=== PATIENT | male | born 1935 | race Caucasian/White ===

== ENCOUNTER 2023-05-05 13:22 | Inpatient (IN) | payer MEDICARE, MEDICAID ==
[~2023-05-05] VITALS: Ht 167.6 cm; Wt 78.0 kg
[2023-05-05 14:17] LABS: BASOPHILS % (AUTO) 0.4 % (0.0-2.0); EOSINOPHILS # (AUTO) 0.2 K/uL (0.0-0.7); EOSINOPHILS % (AUTO) 1.7 % (0.0-6.0); HEMATOCRIT 29 % (39-51); HEMOGLOBIN 9.2 g/dL (13.5-17.5); LYMPHOCYTES # (AUTO) 1.9 K/uL (0.8-4.8); LYMPHOCYTES % (AUTO) 14.6 % (20.0-44.0); MEAN CORPUSCULAR HEMOGLOBIN 30 PG (26.0-33.0); MEAN CORPUSCULAR HGB CONC 32 g/dl (31.0-36.0); MEAN CORPUSCULAR VOLUME 94 fL (80-96); MONOCYTES # (AUTO) 0.8 K/uL (0.1-1.30); MONOCYTES % (AUTO) 5.9 % (2.0-12.0); NEUTROPHILS # (AUTO) 10.2 K/uL (1.8-8.9); NEUTROPHILS % (AUTO) 77.4 % (43.0-81.0); PLATELET COUNT (AUTO) 319 K/uL (150-450); RED BLOOD CELL COUNT(AUTO) 3.08 MIL/uL (4.5-6.0); RED CELL DISTRIBUTION WIDTH 14.4 % (11.5-15.0); WHITE BLOOD COUNT (AUTO) 13.2 K/uL (4.3-11.0)
[2023-05-05 14:30] LABS: INR 1.02 (0.91-1.10); PARTIAL THROMBOPLASTIN TIME 27.9 SEC (24.3-34.3); PROTHROMBIN TIME 10.8 SECS (9.2-11.1)
[2023-05-05 14:45] LABS: CALCIUM, SERUM 9.9 mg/dL (8.5-10.1); CARBON DIOXIDE 19 mmol/L (21-32); CHLORIDE 108 mmol/L (98-107); CREATININE 2.4 mg/dL (0.6-1.3); GLUCOSE 171 mg/dL (74-106); POTASSIUM 4.3 mmol/L (3.5-5.1); SODIUM SERUM 137 mmol/L (136-145); UREA NITROGEN, BLOOD 64 mg/dL (7-18)
[2023-05-05 14:51] LABS: ALANINE AMINOTRANSFERASE 18 U/L (12-78); ALBUMIN 2.2 g/dL (3.4-5.0); ALKALINE PHOSPHATASE 92 U/L (46-116); ASPARTATE AMINOTRANSFERASE 22 U/L (15-37); BILIRUBIN,DIRECT 0.1 mg/dL (0.0-0.2); BILIRUBIN,TOTAL 0.2 mg/dL (0.2-1.0); TOTAL PROTEIN, SERUM 7.7 g/dL (6.4-8.2)
[2023-05-05] MEDS ORDERED: MEMA5TAB42 PO (15:10)
[2023-05-05] MEDS ORDERED: MELA3TAB41 PO (15:10)
[2023-05-05] MEDS ORDERED: FOLI0.8T3 PO (15:10)
[2023-05-05] MEDS ORDERED: DOCU100T2 PO (15:10)
[2023-05-05] MEDS ORDERED: MAGN400O6 PO (15:10)
[2023-05-05] MEDS ORDERED: CYAN-51 PO (15:10)
[2023-05-05] MEDS ORDERED: ACET-868 PO (15:10)
[2023-05-05] MEDS ORDERED: SENN-261 PO (15:10)
[2023-05-05] MEDS ORDERED: MULT-754 PO (15:10)
[2023-05-05] MEDS ORDERED: METF-440 PO (15:10)
[2023-05-05] MEDS ORDERED: LISI20TA30 PO (15:10)
[2023-05-05 15:11] LABS: LACTIC ACID 1.4 mmol/L (0.4-2.0)
[2023-05-05 15:39] LABS: APPEARANCE,URINE CLOUDY (CLEAR); BILIRUBIN,URINE NEGATIVE (NEGATIVE); BLOOD, URINE 3+ Ery/uL (NEGATIVE); COLOR,URINE YELLOW (YELLOW); KETONES,URINE NEGATIVE (NEGATIVE); LEUKOCYTE ESTERASE ,URINE 2+ (NEGATIVE); NITRITE, URINE NEGATIVE (NEGATIVE); PH,URINE 5.5 (5.0-8.0); PROTEIN,URINE 1+ mg/dl (NEGATIVE); UGLUCOSE NEGATIVE (NEGATIVE); UROBILINOGEN,URINE 0.2 EU/dL (0.2)
[2023-05-05] MEDS ORDERED: CEFTRIAXONE 1GM BAG (ER ONLY) 50 ML IV ONE (15:59)
[2023-05-05] MEDS ORDERED: CEFTRIAXONE 1 G in IV D5W 50 ML IV ONE (16:00)
[2023-05-05] MEDS ORDERED: IV NS 0.9% 1,000 ML IV ONE (16:00)
[2023-05-05 16:20] LABS: ADD URINE CULTURE YES; BACTERIA,URINE 1+ /HPF (None Seen); MUCUS,URINE Moderate /LPF (None Seen); WBC,URINE 21-50 /HPF (0-3)
[2023-05-05] MEDS ORDERED: Z GUARD REMEDY 4 OZ OINT TP PRN (19:00)
[2023-05-05] MEDS ORDERED: DEXTROSE 50%-WATER 50 ML DISP.SYRIN IV PRN (19:00)
[2023-05-05] MEDS ORDERED: ZOLPIDEM TARTRATE 5 MG TABLET PO PRN (19:00)
[2023-05-05] MEDS ORDERED: ONDANSETRON HCL/PF 4 MG/2 ML VIAL IVP PRN (19:00)
[2023-05-05 20:00] VITALS: BP 122/55; TEMP 98.1; O2SAT 100
[2023-05-05] MEDS: IV NS 0.9% 1,000 ML IV PRN (20:00)
[2023-05-05] MEDS: ENOXAPARIN SODIUM 30 MG/0.3 ML DISP.SYRIN SQ SCH (20:22)
[2023-05-05 20:58] VITALS: BP 122/55; TEMP 98.1; O2SAT 100
[2023-05-05] MEDS: BLOOD SUGAR DIAGNOSTIC 1 EACH STRIP IN SCH (21:41)
[2023-05-06] MEDS: BLOOD SUGAR DIAGNOSTIC 1 EACH STRIP IN SCH ×4 (06:32→21:39)
[2023-05-06] MEDS: IV NS 0.9% 1,000 ML IV PRN ×2 (06:44→20:14)
[2023-05-06 07:00] LABS: BASOPHILS # (AUTO) 0.1 K/uL (0.0-0.2); BASOPHILS % (AUTO) 0.5 % (0.0-2.0); EOSINOPHILS # (AUTO) 0.2 K/uL (0.0-0.7); EOSINOPHILS % (AUTO) 1.7 % (0.0-6.0); HEMATOCRIT 26 % (39-51); HEMOGLOBIN 8.2 g/dL (13.5-17.5); MEAN CORPUSCULAR HEMOGLOBIN 29 PG (26.0-33.0); MEAN CORPUSCULAR HGB CONC 32 g/dl (31.0-36.0); MEAN CORPUSCULAR VOLUME 93 fL (80-96); MONOCYTES % (AUTO) 8.2 % (2.0-12.0); NEUTROPHILS # (AUTO) 9.1 K/uL (1.8-8.9); NEUTROPHILS % (AUTO) 73.6 % (43.0-81.0); PLATELET COUNT (AUTO) 285 K/uL (150-450); RED BLOOD CELL COUNT(AUTO) 2.79 MIL/uL (4.5-6.0); RED CELL DISTRIBUTION WIDTH 14.2 % (11.5-15.0); WHITE BLOOD COUNT (AUTO) 12.3 K/uL (4.3-11.0)
[2023-05-06 07:03] LABS: CALCIUM, SERUM 9.3 mg/dL (8.5-10.1); CARBON DIOXIDE 20 mmol/L (21-32); CHLORIDE 114 mmol/L (98-107); CREATININE 1.9 mg/dL (0.6-1.3); GLUCOSE 93 mg/dL (74-106); MAGNESIUM 2.2 mg/dL (1.8-2.4); PHOSPHORUS 3.2 mg/dL (2.5-4.9); POTASSIUM 4.3 mmol/L (3.5-5.1); SODIUM SERUM 144 mmol/L (136-145); UREA NITROGEN, BLOOD 52 mg/dL (7-18)
[2023-05-06 07:19] LABS: CHOLESTEROL 106 mg/dL (<200); HDL CHOLESTEROL 30 mg/dL (40-60); LDL 64 mg/dL (0-99); THYROID STIMULATING HORMONE 0.769 uIU/mL (0.358-3.74); TRIGLYCERIDES 112 mg/dL (30-150)
[2023-05-06 08:05] VITALS: BP 104/56; TEMP 98.8; O2SAT 99
[2023-05-06] MEDS: LISINOPRIL (20MG) 20 MG TABLET PO SCH ×2 (09:00→09:33)
[2023-05-06] MEDS ORDERED: METFORMIN 500 MG TABLET PO SCH (09:00)
[2023-05-06] MEDS: MEMANTINE HCL 5 MG TABLET PO SCH (09:32)
[2023-05-06] MEDS: FOLIC ACID 1 MG TABLET PO SCH (09:32)
[2023-05-06] MEDS: DOCUSATE SODIUM 100 MG CAPSULE PO SCH (09:32)
[2023-05-06] MEDS: PANTOPRAZOLE 40 MG TABLET.DR PO SCH (09:32)
[2023-05-06] MEDS: CYANOCOBALAMIN 500 MCG TABLET PO SCH (09:33)
[2023-05-06] MEDS: SENNOSIDES 8.6 MG TABLET PO SCH (09:33)
[2023-05-06] MEDS: INSULIN REGULAR, HUMAN 100 UNIT/ML 3 ML VIAL SQ PRN (12:20)
[2023-05-06 16:13] VITALS: BP 146/66; TEMP 98; O2SAT 99
[2023-05-06] MEDS: CEFTRIAXONE 1 G in IV D5W 50 ML IV SCH (16:21)
[2023-05-06 20:00] VITALS: BP 122/41; TEMP 99.1; O2SAT 99
[2023-05-06] MEDS: ENOXAPARIN SODIUM 30 MG/0.3 ML DISP.SYRIN SQ SCH (20:13)
[2023-05-07 06:13] LABS: BASOPHILS # (AUTO) 0.1 K/uL (0.0-0.2); BASOPHILS % (AUTO) 0.6 % (0.0-2.0); EOSINOPHILS # (AUTO) 0.3 K/uL (0.0-0.7); EOSINOPHILS % (AUTO) 2.4 % (0.0-6.0); HEMATOCRIT 26 % (39-51); HEMOGLOBIN 8.3 g/dL (13.5-17.5); LYMPHOCYTES # (AUTO) 1.6 K/uL (0.8-4.8); LYMPHOCYTES % (AUTO) 14.5 % (20.0-44.0); MEAN CORPUSCULAR HEMOGLOBIN 30 PG (26.0-33.0); MEAN CORPUSCULAR HGB CONC 32 g/dl (31.0-36.0); MEAN CORPUSCULAR VOLUME 93 fL (80-96); MONOCYTES # (AUTO) 0.9 K/uL (0.1-1.30); MONOCYTES % (AUTO) 7.7 % (2.0-12.0); NEUTROPHILS # (AUTO) 8.5 K/uL (1.8-8.9); NEUTROPHILS % (AUTO) 74.8 % (43.0-81.0); PLATELET COUNT (AUTO) 266 K/uL (150-450); RED BLOOD CELL COUNT(AUTO) 2.81 MIL/uL (4.5-6.0); RED CELL DISTRIBUTION WIDTH 14.3 % (11.5-15.0); WHITE BLOOD COUNT (AUTO) 11.4 K/uL (4.3-11.0)
[2023-05-07 06:37] LABS: ALANINE AMINOTRANSFERASE 14 U/L (12-78); ALBUMIN 1.7 g/dL (3.4-5.0); ALKALINE PHOSPHATASE 69 U/L (46-116); ASPARTATE AMINOTRANSFERASE 18 U/L (15-37); BILIRUBIN,TOTAL 0.2 mg/dL (0.2-1.0); CALCIUM, SERUM 9.6 mg/dL (8.5-10.1); CARBON DIOXIDE 19 mmol/L (21-32); CHLORIDE 116 mmol/L (98-107); CREATININE 1.7 mg/dL (0.6-1.3); GLUCOSE 92 mg/dL (74-106); MAGNESIUM 1.7 mg/dL (1.8-2.4); PHOSPHORUS 2.7 mg/dL (2.5-4.9); SODIUM SERUM 143 mmol/L (136-145); TOTAL PROTEIN, SERUM 6.5 g/dL (6.4-8.2); UREA NITROGEN, BLOOD 38 mg/dL (7-18)
[2023-05-07 08:42] VITALS: BP 158/56; TEMP 98.4; O2SAT 97
[2023-05-07] MEDS: INSULIN REGULAR, HUMAN 100 UNIT/ML 3 ML VIAL SQ PRN ×3 (09:49→22:31)
[2023-05-07] MEDS: BLOOD SUGAR DIAGNOSTIC 1 EACH STRIP IN SCH ×4 (09:49→22:31)
[2023-05-07] MEDS: IV NS 0.9% 1,000 ML IV PRN ×2 (09:50→23:51)
[2023-05-07] MEDS: FOLIC ACID 1 MG TABLET PO SCH (10:01)
[2023-05-07] MEDS: DOCUSATE SODIUM 100 MG CAPSULE PO SCH (10:01)
[2023-05-07] MEDS: MEMANTINE HCL 5 MG TABLET PO SCH (10:02)
[2023-05-07] MEDS: LISINOPRIL (20MG) 20 MG TABLET PO SCH (10:02)
[2023-05-07] MEDS: CYANOCOBALAMIN 500 MCG TABLET PO SCH (10:02)
[2023-05-07] MEDS: SENNOSIDES 8.6 MG TABLET PO SCH (10:02)
[2023-05-07] MEDS: PANTOPRAZOLE 40 MG TABLET.DR PO SCH (10:09)
[2023-05-07] MEDS ORDERED: MAGNESIUM OXIDE 400 MG TABLET PO ONE (10:30)
[2023-05-07 14:06] LABS: EOSINOPHILS % (MANUAL) 1 % (0-4); LYMPHOCYTES % (MANUAL) 13 % (16-48); MONOCYTES % (MANUAL) 3 % (0-11.0); NEUTROPHILS % (MANUAL) 83 (42-76); PLATELET ESTIMATE ADEQUATE
[2023-05-07 14:07] LABS: ANISOCYTOSIS 1+
[2023-05-07 15:52] VITALS: BP 150/60; TEMP 97.3; O2SAT 97
[2023-05-07] MEDS: CEFTRIAXONE 1 G in IV D5W 50 ML IV SCH (16:38)
[2023-05-07 20:00] VITALS: BP_SYST 148; BP_SYST 149; BP_DIAS 50; BP_DIAS 62; TEMP 97.6; O2SAT 97
[2023-05-07] MEDS: ENOXAPARIN SODIUM 30 MG/0.3 ML DISP.SYRIN SQ SCH (21:27)
[2023-05-08 06:17] LABS: BASOPHILS # (AUTO) 0.1 K/uL (0.0-0.2); BASOPHILS % (AUTO) 0.4 % (0.0-2.0); EOSINOPHILS # (AUTO) 0.2 K/uL (0.0-0.7); EOSINOPHILS % (AUTO) 1.5 % (0.0-6.0); HEMATOCRIT 24 % (39-51); HEMOGLOBIN 7.9 g/dL (13.5-17.5); LYMPHOCYTES # (AUTO) 1.8 K/uL (0.8-4.8); LYMPHOCYTES % (AUTO) 12.4 % (20.0-44.0); MEAN CORPUSCULAR HEMOGLOBIN 30 PG (26.0-33.0); MEAN CORPUSCULAR HGB CONC 33 g/dl (31.0-36.0); MEAN CORPUSCULAR VOLUME 93 fL (80-96); MONOCYTES # (AUTO) 0.9 K/uL (0.1-1.30); MONOCYTES % (AUTO) 6.4 % (2.0-12.0); NEUTROPHILS # (AUTO) 11.6 K/uL (1.8-8.9); NEUTROPHILS % (AUTO) 79.3 % (43.0-81.0); PLATELET COUNT (AUTO) 275 K/uL (150-450); RED BLOOD CELL COUNT(AUTO) 2.61 MIL/uL (4.5-6.0); RED CELL DISTRIBUTION WIDTH 14.2 % (11.5-15.0); WHITE BLOOD COUNT (AUTO) 14.6 K/uL (4.3-11.0)
[2023-05-08 06:39] LABS: ALANINE AMINOTRANSFERASE 14 U/L (12-78); ALBUMIN 1.6 g/dL (3.4-5.0); ALKALINE PHOSPHATASE 65 U/L (46-116); ASPARTATE AMINOTRANSFERASE 17 U/L (15-37); BILIRUBIN,TOTAL 0.2 mg/dL (0.2-1.0); CALCIUM, SERUM 9.4 mg/dL (8.5-10.1); CARBON DIOXIDE 20 mmol/L (21-32); CHLORIDE 117 mmol/L (98-107); CREATININE 1.5 mg/dL (0.6-1.3); GLUCOSE 102 mg/dL (74-106); MAGNESIUM 1.6 mg/dL (1.8-2.4); PHOSPHORUS 2.2 mg/dL (2.5-4.9); SODIUM SERUM 145 mmol/L (136-145); TOTAL PROTEIN, SERUM 6.2 g/dL (6.4-8.2); UREA NITROGEN, BLOOD 28 mg/dL (7-18)
[2023-05-08] MEDS: INSULIN REGULAR, HUMAN 100 UNIT/ML 3 ML VIAL SQ PRN (07:47)
[2023-05-08] MEDS: BLOOD SUGAR DIAGNOSTIC 1 EACH STRIP IN SCH ×4 (07:47→22:16)
[2023-05-08 08:00] VITALS: BP 143/62; TEMP 99.9; O2SAT 100
[2023-05-08] MEDS: PANTOPRAZOLE 40 MG TABLET.DR PO SCH (08:13)
[2023-05-08] MEDS: SENNOSIDES 8.6 MG TABLET PO SCH (08:32)
[2023-05-08] MEDS: CYANOCOBALAMIN 500 MCG TABLET PO SCH (08:33)
[2023-05-08] MEDS: ACETAMINOPHEN 325 MG TABLET PO PRN (08:33)
[2023-05-08] MEDS: DOCUSATE SODIUM 100 MG CAPSULE PO SCH (08:34)
[2023-05-08] MEDS: FOLIC ACID 1 MG TABLET PO SCH (08:34)
[2023-05-08] MEDS: MEMANTINE HCL 5 MG TABLET PO SCH (08:35)
[2023-05-08] MEDS ORDERED: MAGNESIUM OXIDE 400 MG TABLET PO ONE (11:00)
[2023-05-08 16:00] VITALS: BP 144/66; TEMP 98.8; O2SAT 98
[2023-05-08] MEDS: CEFTRIAXONE 1 G in IV D5W 50 ML IV SCH (16:04)
[2023-05-08] MEDS: IV NS 0.9% 1,000 ML IV PRN (16:12)
[2023-05-08] MEDS ORDERED: NEUTRA PHOS 1 POWD.PACKET PO ONE (17:00)
[2023-05-08 20:00] VITALS: BP 140/55; TEMP 97.5; O2SAT 98
[2023-05-08] MEDS: ENOXAPARIN SODIUM 30 MG/0.3 ML DISP.SYRIN SQ SCH (20:44)
[2023-05-09] MEDS: BLOOD SUGAR DIAGNOSTIC 1 EACH STRIP IN SCH ×4 (05:13→21:56)
[2023-05-09 06:21] LABS: MAGNESIUM 1.8 mg/dL (1.8-2.4)
[2023-05-09 08:00] VITALS: BP 145/64; TEMP 98.9; O2SAT 96
[2023-05-09] MEDS: PANTOPRAZOLE 40 MG TABLET.DR PO SCH (08:25)
[2023-05-09] MEDS: SENNOSIDES 8.6 MG TABLET PO SCH (08:25)
[2023-05-09] MEDS: DOCUSATE SODIUM 100 MG CAPSULE PO SCH (08:25)
[2023-05-09] MEDS: CYANOCOBALAMIN 500 MCG TABLET PO SCH (08:25)
[2023-05-09] MEDS: FOLIC ACID 1 MG TABLET PO SCH (08:25)
[2023-05-09] MEDS: MEMANTINE HCL 5 MG TABLET PO SCH (08:26)
[2023-05-09 16:00] VITALS: BP 142/62; TEMP 98.9; O2SAT 98
[2023-05-09] MEDS: IV NS 0.9% 1,000 ML IV PRN (16:00)
[2023-05-09] MEDS: CEFTRIAXONE 1 G in IV D5W 50 ML IV SCH (16:11)
[2023-05-09 20:00] VITALS: BP 157/81; TEMP 98.6; O2SAT 100
[2023-05-09] MEDS: ENOXAPARIN SODIUM 30 MG/0.3 ML DISP.SYRIN SQ SCH (20:26)
[2023-05-09] MEDS: INSULIN REGULAR, HUMAN 100 UNIT/ML 3 ML VIAL SQ PRN (21:56)
[2023-05-10] MEDS: BLOOD SUGAR DIAGNOSTIC 1 EACH STRIP IN SCH ×4 (06:29→22:00)
[2023-05-10] MEDS: INSULIN REGULAR, HUMAN 100 UNIT/ML 3 ML VIAL SQ PRN (06:30)
[2023-05-10] MEDS: PANTOPRAZOLE 40 MG TABLET.DR PO SCH ×2 (07:30→07:35)
[2023-05-10] MEDS: IV NS 0.9% 1,000 ML IV PRN (07:40)
[2023-05-10 08:37] VITALS: BP 164/64; TEMP 97.7; O2SAT 99
[2023-05-10] MEDS: FOLIC ACID 1 MG TABLET PO SCH (09:00)
[2023-05-10] MEDS: SENNOSIDES 8.6 MG TABLET PO SCH (09:00)
[2023-05-10] MEDS: MEMANTINE HCL 5 MG TABLET PO SCH (09:00)
[2023-05-10] MEDS: CYANOCOBALAMIN 500 MCG TABLET PO SCH (09:00)
[2023-05-10] MEDS: DOCUSATE SODIUM 100 MG CAPSULE PO SCH (09:00)
[2023-05-10 16:02] VITALS: BP 153/52; TEMP 98.1; O2SAT 97
[2023-05-10] MEDS: CEFTRIAXONE 1 G in IV D5W 50 ML IV SCH (17:01)
[2023-05-10] MEDS: GLUCERNA SHAKE 237 ML CAN PO SCH (17:44)
[2023-05-10 20:00] VITALS: BP 145/58; TEMP 98; O2SAT 97
[2023-05-10] MEDS: ENOXAPARIN SODIUM 30 MG/0.3 ML DISP.SYRIN SQ SCH (21:00)
[2023-05-11] MEDS: IV NS 0.9% 1,000 ML IV PRN (05:07)
[2023-05-11] MEDS: BLOOD SUGAR DIAGNOSTIC 1 EACH STRIP IN SCH ×4 (06:35→22:06)
[2023-05-11 08:00] VITALS: BP 156/68; TEMP 100.4; O2SAT 94
[2023-05-11] MEDS: MEMANTINE HCL 5 MG TABLET PO SCH (08:31)
[2023-05-11] MEDS: DOCUSATE SODIUM 100 MG CAPSULE PO SCH (08:31)
[2023-05-11] MEDS: PANTOPRAZOLE 40 MG TABLET.DR PO SCH (08:31)
[2023-05-11] MEDS: CYANOCOBALAMIN 500 MCG TABLET PO SCH (08:31)
[2023-05-11] MEDS: FOLIC ACID 1 MG TABLET PO SCH (08:31)
[2023-05-11] MEDS: SENNOSIDES 8.6 MG TABLET PO SCH (08:31)
[2023-05-11] MEDS: GLUCERNA SHAKE 237 ML CAN PO SCH ×2 (08:32→16:34)
[2023-05-11] MEDS: ACETAMINOPHEN 325 MG TABLET PO PRN ×2 (09:36→17:44)
[2023-05-11 09:51] LABS: BASOPHILS % (AUTO) 0.2 % (0.0-2.0); EOSINOPHILS # (AUTO) 0.1 K/uL (0.0-0.7); EOSINOPHILS % (AUTO) 0.9 % (0.0-6.0); HEMATOCRIT 30 % (39-51); HEMOGLOBIN 9.1 g/dL (13.5-17.5); LYMPHOCYTES # (AUTO) 1.5 K/uL (0.8-4.8); LYMPHOCYTES % (AUTO) 12.2 % (20.0-44.0); MEAN CORPUSCULAR HEMOGLOBIN 30 PG (26.0-33.0); MEAN CORPUSCULAR HGB CONC 30 g/dl (31.0-36.0); MEAN CORPUSCULAR VOLUME 99 fL (80-96); MONOCYTES # (AUTO) 0.9 K/uL (0.1-1.30); MONOCYTES % (AUTO) 7.2 % (2.0-12.0); NEUTROPHILS # (AUTO) 10.1 K/uL (1.8-8.9); NEUTROPHILS % (AUTO) 79.5 % (43.0-81.0); PLATELET COUNT (AUTO) 246 K/uL (150-450); RED BLOOD CELL COUNT(AUTO) 3.05 MIL/uL (4.5-6.0); RED CELL DISTRIBUTION WIDTH 15.6 % (11.5-15.0); WHITE BLOOD COUNT (AUTO) 12.7 K/uL (4.3-11.0)
[2023-05-11 10:02] LABS: ALANINE AMINOTRANSFERASE 14 U/L (12-78); ALBUMIN 1.8 g/dL (3.4-5.0); ALKALINE PHOSPHATASE 79 U/L (46-116); ASPARTATE AMINOTRANSFERASE 20 U/L (15-37); BILIRUBIN,TOTAL 0.2 mg/dL (0.2-1.0); CALCIUM, SERUM 9.6 mg/dL (8.5-10.1); CARBON DIOXIDE 18 mmol/L (21-32); CHLORIDE 115 mmol/L (98-107); CREATININE 1.5 mg/dL (0.6-1.3); GLUCOSE 106 mg/dL (74-106); MAGNESIUM 1.9 mg/dL (1.8-2.4); PHOSPHORUS 2.5 mg/dL (2.5-4.9); POTASSIUM 4.4 mmol/L (3.5-5.1); SODIUM SERUM 142 mmol/L (136-145); TOTAL PROTEIN, SERUM 6.8 g/dL (6.4-8.2); UREA NITROGEN, BLOOD 18 mg/dL (7-18)
[2023-05-11] MEDS: INSULIN REGULAR, HUMAN 100 UNIT/ML 3 ML VIAL SQ PRN ×2 (13:00→22:18)
[2023-05-11 16:00] VITALS: BP 133/54; TEMP 100.4; O2SAT 98
[2023-05-11] MEDS: CEFTRIAXONE 1 G in IV D5W 50 ML IV SCH (16:34)
[2023-05-11 18:30] VITALS: TEMP 99.1
[2023-05-11 20:02] VITALS: BP 140/54; TEMP 99.9; O2SAT 100
[2023-05-11] MEDS: ENOXAPARIN SODIUM 30 MG/0.3 ML DISP.SYRIN SQ SCH (21:41)
[2023-05-12] MEDS: BLOOD SUGAR DIAGNOSTIC 1 EACH STRIP IN SCH ×4 (06:16→22:56)
[2023-05-12] MEDS: INSULIN REGULAR, HUMAN 100 UNIT/ML 3 ML VIAL SQ PRN ×4 (06:16→23:19)
[2023-05-12] MEDS: PANTOPRAZOLE 40 MG TABLET.DR PO SCH (07:37)
[2023-05-12 08:00] VITALS: BP 142/76; TEMP 98.2; O2SAT 97
[2023-05-12] MEDS: GLUCERNA SHAKE 237 ML CAN PO SCH ×2 (08:27→17:17)
[2023-05-12] MEDS: FOLIC ACID 1 MG TABLET PO SCH (08:27)
[2023-05-12] MEDS: DOCUSATE SODIUM 100 MG CAPSULE PO SCH (08:27)
[2023-05-12] MEDS: CYANOCOBALAMIN 500 MCG TABLET PO SCH (08:27)
[2023-05-12] MEDS: MEMANTINE HCL 5 MG TABLET PO SCH (08:28)
[2023-05-12] MEDS: SENNOSIDES 8.6 MG TABLET PO SCH (08:28)
[2023-05-12] MEDS ORDERED: MEGESTROL ACETATE SUSP 400 MG/10 ML UDC PO SCH (10:30)
[2023-05-12] MEDS: MEGESTROL ACETATE SUSP 400 MG/10 ML UDC PO SCH (10:46)
[2023-05-12] MEDS ORDERED: CEFEPIME 2 GM in IV D5W 100 ML IV ONE (14:00)
[2023-05-12 16:00] VITALS: BP 139/57; TEMP 97.8; O2SAT 97
[2023-05-12 17:48] LABS: IRON, SERUM 11 ug/dl (50-175); TOTAL IRON BINDING CAPACITY 75 ug/dl (250-450)
[2023-05-12 18:26] LABS: FERRITIN 568 ng/mL (8-388)
[2023-05-12 20:00] VITALS: BP 137/58; TEMP 98.6; O2SAT 96
[2023-05-12] MEDS: ENOXAPARIN SODIUM 30 MG/0.3 ML DISP.SYRIN SQ SCH (22:02)
[2023-05-13] MEDS: BLOOD SUGAR DIAGNOSTIC 1 EACH STRIP IN SCH ×4 (06:11→22:49)
[2023-05-13] MEDS: INSULIN REGULAR, HUMAN 100 UNIT/ML 3 ML VIAL SQ PRN ×4 (06:12→22:52)
[2023-05-13 06:16] LABS: BASOPHILS % (AUTO) 0.4 % (0.0-2.0); EOSINOPHILS # (AUTO) 0.1 K/uL (0.0-0.7); EOSINOPHILS % (AUTO) 1.3 % (0.0-6.0); HEMATOCRIT 24 % (39-51); LYMPHOCYTES # (AUTO) 1.2 K/uL (0.8-4.8); LYMPHOCYTES % (AUTO) 11.9 % (20.0-44.0); MEAN CORPUSCULAR HEMOGLOBIN 30 PG (26.0-33.0); MEAN CORPUSCULAR HGB CONC 33 g/dl (31.0-36.0); MEAN CORPUSCULAR VOLUME 92 fL (80-96); MONOCYTES # (AUTO) 0.7 K/uL (0.1-1.30); MONOCYTES % (AUTO) 6.7 % (2.0-12.0); NEUTROPHILS # (AUTO) 7.8 K/uL (1.8-8.9); NEUTROPHILS % (AUTO) 79.7 % (43.0-81.0); PLATELET COUNT (AUTO) 222 K/uL (150-450); RED BLOOD CELL COUNT(AUTO) 2.63 MIL/uL (4.5-6.0); RED CELL DISTRIBUTION WIDTH 14.4 % (11.5-15.0); WHITE BLOOD COUNT (AUTO) 9.8 K/uL (4.3-11.0)
[2023-05-13 06:44] LABS: CALCIUM, SERUM 9.8 mg/dL (8.5-10.1); CARBON DIOXIDE 19 mmol/L (21-32); CHLORIDE 116 mmol/L (98-107); CREATININE 1.6 mg/dL (0.6-1.3); GLUCOSE 86 mg/dL (74-106); MAGNESIUM 1.9 mg/dL (1.8-2.4); PHOSPHORUS 2.4 mg/dL (2.5-4.9); POTASSIUM 3.6 mmol/L (3.5-5.1); SODIUM SERUM 143 mmol/L (136-145); UREA NITROGEN, BLOOD 25 mg/dL (7-18)
[2023-05-13] MEDS: PANTOPRAZOLE 40 MG TABLET.DR PO SCH (07:12)
[2023-05-13 08:00] VITALS: BP 153/63; TEMP 97.4; O2SAT 98
[2023-05-13] MEDS: GLUCERNA SHAKE 237 ML CAN PO SCH ×2 (08:27→17:11)
[2023-05-13] MEDS: SENNOSIDES 8.6 MG TABLET PO SCH (08:50)
[2023-05-13] MEDS: CYANOCOBALAMIN 500 MCG TABLET PO SCH (08:50)
[2023-05-13] MEDS: FOLIC ACID 1 MG TABLET PO SCH (08:50)
[2023-05-13] MEDS: MEMANTINE HCL 5 MG TABLET PO SCH (08:50)
[2023-05-13] MEDS: DOCUSATE SODIUM 100 MG CAPSULE PO SCH (08:50)
[2023-05-13] MEDS: MEGESTROL ACETATE SUSP 400 MG/10 ML UDC PO SCH (08:51)
[2023-05-13 10:07] LABS: FOLIC ACID > 20.0 ng/mL (>3.0)
[2023-05-13 11:07] LABS: IMMUNOGLOBULIN A, SERUM 404 mg/dL (61-437); IMMUNOGLOBULIN G, SERUM 1849 mg/dL (603-1613)
[2023-05-13 13:07] LABS: *SPE A/G RATIO 0.5 (0.7-1.7); *SPE ALBUMIN 2.1 g/dL (2.9-4.4); *SPE ALPHA-1-GLOBULIN 0.4 g/dL (0.0-0.4); *SPE ALPHA-2-GLOBULIN 0.9 g/dL (0.4-1.0); *SPE GLOBULIN, TOTAL 4.1 g/dL (2.2-3.9); *SPE M-SPIKE Not Observed g/dL (Not Observed); *SPE PROTEIN TOTAL 6.2 g/dL (6.0-8.5); *SPEGAMMA GLOBULIN 1.8 g/dL (0.4-1.8)
[2023-05-13] MEDS ORDERED: CEFEPIME 1 GM in IV D5W 50 ML IV SCH (14:00)
[2023-05-13 14:07] LABS: FREE LAMBDA LT CHAIN SERUM 136.2 mg/L (5.7-26.3); KAPPA/LAMBDA RATIO SERUM 1.68 (0.26-1.65)
[2023-05-13 15:29] LABS: HIV-1 p24 ANTIGEN NON REACTIVE (NONREACTIVE); HIV-1/2 ANTIBODY NON REACTIVE (NONREACTIVE)
[2023-05-13 16:00] VITALS: BP 99/59; TEMP 97.4; O2SAT 99
[2023-05-13] MEDS ORDERED: NEUTRA PHOS 1 POWD.PACKET NG ONE (16:00)
[2023-05-13 17:06] LABS: IMMUNOGLOBULIN M, SERUM 85 mg/dL (15-143)
[2023-05-13 20:00] VITALS: BP 119/45; TEMP 98.2; O2SAT 97
[2023-05-13 20:04] VITALS: BP 119/45; TEMP 98.2; O2SAT 97
[2023-05-13] MEDS: ENOXAPARIN SODIUM 30 MG/0.3 ML DISP.SYRIN SQ SCH (22:16)
[2023-05-14] MEDS: BLOOD SUGAR DIAGNOSTIC 1 EACH STRIP IN SCH ×4 (06:43→22:54)
[2023-05-14] MEDS: INSULIN REGULAR, HUMAN 100 UNIT/ML 3 ML VIAL SQ PRN ×3 (06:44→23:02)
[2023-05-14] MEDS: PANTOPRAZOLE 40 MG TABLET.DR PO SCH (07:37)
[2023-05-14 08:29] VITALS: BP 158/58; TEMP 99.1; O2SAT 98
[2023-05-14 08:40] VITALS: BP 133/59; TEMP 98.9; O2SAT 98
[2023-05-14] MEDS: CYANOCOBALAMIN 500 MCG TABLET PO SCH (08:44)
[2023-05-14] MEDS: GLUCERNA SHAKE 237 ML CAN PO SCH ×2 (08:44→17:17)
[2023-05-14] MEDS: DOCUSATE SODIUM 100 MG CAPSULE PO SCH (08:44)
[2023-05-14] MEDS: SENNOSIDES 8.6 MG TABLET PO SCH (08:44)
[2023-05-14] MEDS: FOLIC ACID 1 MG TABLET PO SCH (08:44)
[2023-05-14] MEDS: MEMANTINE HCL 5 MG TABLET PO SCH (08:44)
[2023-05-14] MEDS: MEGESTROL ACETATE SUSP 400 MG/10 ML UDC PO SCH (08:44)
[2023-05-14] MEDS: CEFEPIME 2 GM in IV D5W 100 ML IV SCH (14:05)
[2023-05-14 16:00] VITALS: BP 122/58; TEMP 99.1; O2SAT 97
[2023-05-14 20:00] VITALS: BP 148/71; TEMP 98.4; O2SAT 97
[2023-05-14] MEDS: ENOXAPARIN SODIUM 30 MG/0.3 ML DISP.SYRIN SQ SCH (21:28)
[2023-05-15 05:49] LABS: BASOPHILS % (AUTO) 0.3 % (0.0-2.0); EOSINOPHILS # (AUTO) 0.2 K/uL (0.0-0.7); HEMATOCRIT 26 % (39-51); HEMOGLOBIN 8.3 g/dL (13.5-17.5); LYMPHOCYTES % (AUTO) 21.5 % (20.0-44.0); MEAN CORPUSCULAR HEMOGLOBIN 30 PG (26.0-33.0); MEAN CORPUSCULAR HGB CONC 33 g/dl (31.0-36.0); MEAN CORPUSCULAR VOLUME 91 fL (80-96); MONOCYTES # (AUTO) 0.7 K/uL (0.1-1.30); MONOCYTES % (AUTO) 7.5 % (2.0-12.0); NEUTROPHILS # (AUTO) 6.4 K/uL (1.8-8.9); NEUTROPHILS % (AUTO) 68.7 % (43.0-81.0); PLATELET COUNT (AUTO) 247 K/uL (150-450); RED BLOOD CELL COUNT(AUTO) 2.81 MIL/uL (4.5-6.0); RED CELL DISTRIBUTION WIDTH 14.6 % (11.5-15.0); WHITE BLOOD COUNT (AUTO) 9.3 K/uL (4.3-11.0)
[2023-05-15 06:04] LABS: CALCIUM, SERUM 9.7 mg/dL (8.5-10.1); CARBON DIOXIDE 22 mmol/L (21-32); CHLORIDE 114 mmol/L (98-107); CREATININE 1.7 mg/dL (0.6-1.3); GLUCOSE 84 mg/dL (74-106); POTASSIUM 3.9 mmol/L (3.5-5.1); SODIUM SERUM 144 mmol/L (136-145); UREA NITROGEN, BLOOD 29 mg/dL (7-18)
[2023-05-15] MEDS: BLOOD SUGAR DIAGNOSTIC 1 EACH STRIP IN SCH ×4 (06:49→21:55)
[2023-05-15] MEDS: INSULIN REGULAR, HUMAN 100 UNIT/ML 3 ML VIAL SQ PRN ×2 (06:50→21:56)
[2023-05-15 08:00] VITALS: BP 151/60; TEMP 98.6; O2SAT 99
[2023-05-15] MEDS: SENNOSIDES 8.6 MG TABLET PO SCH (09:26)
[2023-05-15] MEDS: DOCUSATE SODIUM 100 MG CAPSULE PO SCH (09:26)
[2023-05-15] MEDS: CYANOCOBALAMIN 500 MCG TABLET PO SCH (09:27)
[2023-05-15] MEDS: PANTOPRAZOLE 40 MG TABLET.DR PO SCH (09:27)
[2023-05-15] MEDS: MEGESTROL ACETATE SUSP 400 MG/10 ML UDC PO SCH (09:27)
[2023-05-15] MEDS: FOLIC ACID 1 MG TABLET PO SCH (09:27)
[2023-05-15] MEDS: MEMANTINE HCL 5 MG TABLET PO SCH (09:27)
[2023-05-15] MEDS: GLUCERNA SHAKE 237 ML CAN PO SCH ×2 (09:28→17:24)
[2023-05-15] MEDS: CEFEPIME 2 GM in IV D5W 100 ML IV SCH (15:52)
[2023-05-15 16:00] VITALS: BP 117/50; TEMP 100.4; O2SAT 97
[2023-05-15 20:00] VITALS: BP 151/56; TEMP 98.6; O2SAT 97
[2023-05-15] MEDS: ENOXAPARIN SODIUM 30 MG/0.3 ML DISP.SYRIN SQ SCH (20:32)
[2023-05-16 01:04] LABS: EOSINOPHILS % (MANUAL) 2 % (0-4); LYMPHOCYTES % (MANUAL) 20 % (16-48); MONOCYTES % (MANUAL) 6 % (0-11.0); NEUTROPHILS % (MANUAL) 72 (42-76)
[2023-05-16 01:05] LABS: PLATELET ESTIMATE ADEQUATE
[2023-05-16] MEDS: BLOOD SUGAR DIAGNOSTIC 1 EACH STRIP IN SCH ×4 (06:30→23:06)
[2023-05-16] MEDS: INSULIN REGULAR, HUMAN 100 UNIT/ML 3 ML VIAL SQ PRN ×4 (06:31→23:07)
[2023-05-16] MEDS: PANTOPRAZOLE 40 MG TABLET.DR PO SCH (07:28)
[2023-05-16] MEDS: GLUCERNA SHAKE 237 ML CAN PO SCH ×2 (08:07→16:59)
[2023-05-16] MEDS: MEMANTINE HCL 5 MG TABLET PO SCH (08:08)
[2023-05-16] MEDS: SENNOSIDES 8.6 MG TABLET PO SCH (08:08)
[2023-05-16] MEDS: CYANOCOBALAMIN 500 MCG TABLET PO SCH (08:08)
[2023-05-16] MEDS: FOLIC ACID 1 MG TABLET PO SCH (08:08)
[2023-05-16] MEDS: MEGESTROL ACETATE SUSP 400 MG/10 ML UDC PO SCH (08:08)
[2023-05-16] MEDS: DOCUSATE SODIUM 100 MG CAPSULE PO SCH (08:08)
[2023-05-16 08:27] LABS: BASOPHILS % (AUTO) 0.3 % (0.0-2.0); EOSINOPHILS # (AUTO) 0.2 K/uL (0.0-0.7); EOSINOPHILS % (AUTO) 1.7 % (0.0-6.0); HEMATOCRIT 27 % (39-51); HEMOGLOBIN 8.6 g/dL (13.5-17.5); LYMPHOCYTES # (AUTO) 2.1 K/uL (0.8-4.8); LYMPHOCYTES % (AUTO) 21.1 % (20.0-44.0); MEAN CORPUSCULAR HEMOGLOBIN 30 PG (26.0-33.0); MEAN CORPUSCULAR HGB CONC 32 g/dl (31.0-36.0); MEAN CORPUSCULAR VOLUME 93 fL (80-96); MONOCYTES # (AUTO) 0.7 K/uL (0.1-1.30); NEUTROPHILS % (AUTO) 69.9 % (43.0-81.0); PLATELET COUNT (AUTO) 240 K/uL (150-450); RED BLOOD CELL COUNT(AUTO) 2.92 MIL/uL (4.5-6.0); RED CELL DISTRIBUTION WIDTH 14.7 % (11.5-15.0)
[2023-05-16 08:44] LABS: CALCIUM, SERUM 9.8 mg/dL (8.5-10.1); CARBON DIOXIDE 21 mmol/L (21-32); CHLORIDE 114 mmol/L (98-107); CREATININE 1.5 mg/dL (0.6-1.3); GLUCOSE 80 mg/dL (74-106); POTASSIUM 3.8 mmol/L (3.5-5.1); SODIUM SERUM 144 mmol/L (136-145); UREA NITROGEN, BLOOD 26 mg/dL (7-18)
[2023-05-16 09:06] VITALS: BP_SYST 137; BP_SYST 169; BP_DIAS 61; BP_DIAS 70; TEMP 99.1; O2SAT 98
[2023-05-16] MEDS: CEFEPIME 2 GM in IV D5W 100 ML IV SCH (13:05)
[2023-05-16 16:15] VITALS: BP 147/75; TEMP 98.5; O2SAT 98
[2023-05-16 20:00] VITALS: BP 159/66; TEMP 98.2; O2SAT 96
[2023-05-16] MEDS: ENOXAPARIN SODIUM 30 MG/0.3 ML DISP.SYRIN SQ SCH (20:46)
[2023-05-17 05:51] LABS: BASOPHILS % (AUTO) 0.4 % (0.0-2.0); EOSINOPHILS # (AUTO) 0.2 K/uL (0.0-0.7); HEMATOCRIT 25 % (39-51); HEMOGLOBIN 8.2 g/dL (13.5-17.5); LYMPHOCYTES % (AUTO) 19.7 % (20.0-44.0); MEAN CORPUSCULAR HEMOGLOBIN 30 PG (26.0-33.0); MEAN CORPUSCULAR HGB CONC 33 g/dl (31.0-36.0); MEAN CORPUSCULAR VOLUME 92 fL (80-96); MONOCYTES # (AUTO) 0.7 K/uL (0.1-1.30); MONOCYTES % (AUTO) 6.5 % (2.0-12.0); NEUTROPHILS # (AUTO) 7.3 K/uL (1.8-8.9); NEUTROPHILS % (AUTO) 71.4 % (43.0-81.0); PLATELET COUNT (AUTO) 252 K/uL (150-450); RED BLOOD CELL COUNT(AUTO) 2.71 MIL/uL (4.5-6.0); RED CELL DISTRIBUTION WIDTH 14.7 % (11.5-15.0); WHITE BLOOD COUNT (AUTO) 10.3 K/uL (4.3-11.0)
[2023-05-17 06:04] LABS: INR 1.03 (0.91-1.10); PARTIAL THROMBOPLASTIN TIME 30.8 SEC (24.3-34.3); PROTHROMBIN TIME 10.9 SECS (9.2-11.1)
[2023-05-17 06:19] LABS: CALCIUM, SERUM 10.1 mg/dL (8.5-10.1); CARBON DIOXIDE 21 mmol/L (21-32); CHLORIDE 113 mmol/L (98-107); CREATININE 1.6 mg/dL (0.6-1.3); GLUCOSE 85 mg/dL (74-106); POTASSIUM 3.7 mmol/L (3.5-5.1); SODIUM SERUM 143 mmol/L (136-145); UREA NITROGEN, BLOOD 25 mg/dL (7-18)
[2023-05-17] MEDS: BLOOD SUGAR DIAGNOSTIC 1 EACH STRIP IN SCH ×4 (06:30→21:42)
[2023-05-17] MEDS: INSULIN REGULAR, HUMAN 100 UNIT/ML 3 ML VIAL SQ PRN ×4 (06:37→21:42)
[2023-05-17] MEDS: PANTOPRAZOLE 40 MG TABLET.DR PO SCH (07:30)
[2023-05-17 08:00] VITALS: BP 149/64; TEMP 98.8; O2SAT 97
[2023-05-17] MEDS: GLUCERNA SHAKE 237 ML CAN PO SCH ×2 (08:00→17:00)
[2023-05-17] MEDS: SENNOSIDES 8.6 MG TABLET PO SCH (08:38)
[2023-05-17] MEDS: MEMANTINE HCL 5 MG TABLET PO SCH (08:38)
[2023-05-17] MEDS: FOLIC ACID 1 MG TABLET PO SCH (08:38)
[2023-05-17] MEDS: DOCUSATE SODIUM 100 MG CAPSULE PO SCH (08:38)
[2023-05-17] MEDS: MEGESTROL ACETATE SUSP 400 MG/10 ML UDC PO SCH (08:38)
[2023-05-17] MEDS: CYANOCOBALAMIN 500 MCG TABLET PO SCH (08:39)
[2023-05-17] MEDS: CEFEPIME 2 GM in IV D5W 100 ML IV SCH (14:34)
[2023-05-17 16:00] VITALS: BP 165/69; TEMP 98.8; O2SAT 99
[2023-05-17 20:00] VITALS: BP_SYST 150; BP_SYST 151; BP_DIAS 62; TEMP 97.3; O2SAT 98
[2023-05-17] MEDS: ENOXAPARIN SODIUM 30 MG/0.3 ML DISP.SYRIN SQ SCH (20:13)
[2023-05-17] MEDS: IV D5/ 0.9% NACL 1,000 ML IV PRN (20:39)
[2023-05-18 06:30] LABS: BASOPHILS % (AUTO) 0.2 % (0.0-2.0); EOSINOPHILS # (AUTO) 0.2 K/uL (0.0-0.7); HEMATOCRIT 26 % (39-51); HEMOGLOBIN 8.4 g/dL (13.5-17.5); LYMPHOCYTES # (AUTO) 1.6 K/uL (0.8-4.8); LYMPHOCYTES % (AUTO) 17.6 % (20.0-44.0); MEAN CORPUSCULAR HEMOGLOBIN 30 PG (26.0-33.0); MEAN CORPUSCULAR HGB CONC 32 g/dl (31.0-36.0); MEAN CORPUSCULAR VOLUME 92 fL (80-96); MONOCYTES # (AUTO) 0.7 K/uL (0.1-1.30); MONOCYTES % (AUTO) 7.4 % (2.0-12.0); NEUTROPHILS # (AUTO) 6.8 K/uL (1.8-8.9); NEUTROPHILS % (AUTO) 72.8 % (43.0-81.0); PLATELET COUNT (AUTO) 257 K/uL (150-450); RED BLOOD CELL COUNT(AUTO) 2.82 MIL/uL (4.5-6.0); RED CELL DISTRIBUTION WIDTH 14.7 % (11.5-15.0); WHITE BLOOD COUNT (AUTO) 9.3 K/uL (4.3-11.0)
[2023-05-18 06:46] LABS: CALCIUM, SERUM 10.1 mg/dL (8.5-10.1); CARBON DIOXIDE 22 mmol/L (21-32); CHLORIDE 113 mmol/L (98-107); CREATININE 1.5 mg/dL (0.6-1.3); GLUCOSE 102 mg/dL (74-106); POTASSIUM 3.9 mmol/L (3.5-5.1); SODIUM SERUM 143 mmol/L (136-145); UREA NITROGEN, BLOOD 23 mg/dL (7-18)
[2023-05-18] MEDS: BLOOD SUGAR DIAGNOSTIC 1 EACH STRIP IN SCH ×4 (07:12→22:29)
[2023-05-18] MEDS: INSULIN REGULAR, HUMAN 100 UNIT/ML 3 ML VIAL SQ PRN ×4 (07:12→22:29)
[2023-05-18] MEDS: PANTOPRAZOLE 40 MG TABLET.DR PO SCH (07:30)
[2023-05-18 08:00] VITALS: BP 145/57; TEMP 98.2; O2SAT 96
[2023-05-18] MEDS: GLUCERNA SHAKE 237 ML CAN PO SCH ×2 (08:00→17:00)
[2023-05-18] MEDS: FOLIC ACID 1 MG TABLET PO SCH (09:00)
[2023-05-18] MEDS: MEGESTROL ACETATE SUSP 400 MG/10 ML UDC PO SCH (09:00)
[2023-05-18] MEDS: CYANOCOBALAMIN 500 MCG TABLET PO SCH (09:00)
[2023-05-18] MEDS: DOCUSATE SODIUM 100 MG CAPSULE PO SCH (09:00)
[2023-05-18] MEDS: SENNOSIDES 8.6 MG TABLET PO SCH (09:00)
[2023-05-18] MEDS: MEMANTINE HCL 5 MG TABLET PO SCH (09:02)
[2023-05-18] MEDS: CEFEPIME 2 GM in IV D5W 100 ML IV SCH (15:00)
[2023-05-18 16:00] VITALS: BP 174/60; TEMP 97.9; O2SAT 96
[2023-05-18 19:00] VITALS: BP 132/54; TEMP 98; O2SAT 98
[2023-05-18 20:00] VITALS: BP 132/54; TEMP 98; O2SAT 98
[2023-05-18] MEDS: ENOXAPARIN SODIUM 30 MG/0.3 ML DISP.SYRIN SQ SCH (21:00)
[2023-05-19] MEDS: IV D5/ 0.9% NACL 1,000 ML IV PRN (04:45)
[2023-05-19] MEDS: INSULIN REGULAR, HUMAN 100 UNIT/ML 3 ML VIAL SQ PRN (06:46)
[2023-05-19] MEDS: BLOOD SUGAR DIAGNOSTIC 1 EACH STRIP IN SCH ×4 (06:46→22:57)
[2023-05-19] MEDS: PANTOPRAZOLE 40 MG TABLET.DR PO SCH (07:30)
[2023-05-19] MEDS: GLUCERNA SHAKE 237 ML CAN PO SCH ×2 (08:00→17:42)
[2023-05-19 08:13] VITALS: BP 172/61; TEMP 98.1; O2SAT 99
[2023-05-19] MEDS: MEMANTINE HCL 5 MG TABLET PO SCH (09:00)
[2023-05-19] MEDS: SENNOSIDES 8.6 MG TABLET PO SCH (09:00)
[2023-05-19] MEDS: DOCUSATE SODIUM 100 MG CAPSULE PO SCH (09:00)
[2023-05-19] MEDS: MEGESTROL ACETATE SUSP 400 MG/10 ML UDC PO SCH (09:00)
[2023-05-19] MEDS: CYANOCOBALAMIN 500 MCG TABLET PO SCH (09:00)
[2023-05-19] MEDS: FOLIC ACID 1 MG TABLET PO SCH (09:00)
[2023-05-19 10:52] LABS: CALCIUM, SERUM 10.2 mg/dL (8.5-10.1); CARBON DIOXIDE 19 mmol/L (21-32); CHLORIDE 112 mmol/L (98-107); CREATININE 1.4 mg/dL (0.6-1.3); GLUCOSE 91 mg/dL (74-106); POTASSIUM 3.4 mmol/L (3.5-5.1); SODIUM SERUM 142 mmol/L (136-145); UREA NITROGEN, BLOOD 18 mg/dL (7-18)
[2023-05-19 11:10] LABS: BASOPHILS % (AUTO) 0.5 % (0.0-2.0); EOSINOPHILS # (AUTO) 0.2 K/uL (0.0-0.7); EOSINOPHILS % (AUTO) 1.8 % (0.0-6.0); HEMATOCRIT 27 % (39-51); HEMOGLOBIN 8.5 g/dL (13.5-17.5); LYMPHOCYTES # (AUTO) 1.3 K/uL (0.8-4.8); LYMPHOCYTES % (AUTO) 14.7 % (20.0-44.0); MEAN CORPUSCULAR HEMOGLOBIN 30 PG (26.0-33.0); MEAN CORPUSCULAR HGB CONC 32 g/dl (31.0-36.0); MEAN CORPUSCULAR VOLUME 94 fL (80-96); MONOCYTES # (AUTO) 0.7 K/uL (0.1-1.30); MONOCYTES % (AUTO) 8.1 % (2.0-12.0); NEUTROPHILS # (AUTO) 6.7 K/uL (1.8-8.9); NEUTROPHILS % (AUTO) 74.9 % (43.0-81.0); PLATELET COUNT (AUTO) 260 K/uL (150-450); RED BLOOD CELL COUNT(AUTO) 2.83 MIL/uL (4.5-6.0); RED CELL DISTRIBUTION WIDTH 14.9 % (11.5-15.0)
[2023-05-19] MEDS: CEFEPIME 2 GM in IV D5W 100 ML IV SCH (13:14)
[2023-05-19] MEDS: POTASSIUM CL. PREMIX PERIPHER. 50 ML IV SCH ×2 (13:47→15:19)
[2023-05-19 16:00] VITALS: BP 167/85; TEMP 97.9; O2SAT 98
[2023-05-19 20:00] VITALS: BP 160/67; TEMP 98.2; O2SAT 100
[2023-05-19] MEDS: ENOXAPARIN SODIUM 30 MG/0.3 ML DISP.SYRIN SQ SCH (21:00)
[2023-05-20] MEDS: IV D5/ 0.9% NACL 1,000 ML IV PRN (01:29)
[2023-05-20 05:54] LABS: BASOPHILS % (AUTO) 0.3 % (0.0-2.0); EOSINOPHILS # (AUTO) 0.2 K/uL (0.0-0.7); EOSINOPHILS % (AUTO) 1.7 % (0.0-6.0); HEMATOCRIT 27 % (39-51); HEMOGLOBIN 8.7 g/dL (13.5-17.5); LYMPHOCYTES # (AUTO) 1.7 K/uL (0.8-4.8); LYMPHOCYTES % (AUTO) 16.5 % (20.0-44.0); MEAN CORPUSCULAR HEMOGLOBIN 30 PG (26.0-33.0); MEAN CORPUSCULAR HGB CONC 32 g/dl (31.0-36.0); MEAN CORPUSCULAR VOLUME 92 fL (80-96); MONOCYTES # (AUTO) 0.8 K/uL (0.1-1.30); MONOCYTES % (AUTO) 7.7 % (2.0-12.0); NEUTROPHILS # (AUTO) 7.6 K/uL (1.8-8.9); NEUTROPHILS % (AUTO) 73.8 % (43.0-81.0); PLATELET COUNT (AUTO) 292 K/uL (150-450); RED BLOOD CELL COUNT(AUTO) 2.92 MIL/uL (4.5-6.0); RED CELL DISTRIBUTION WIDTH 14.6 % (11.5-15.0); WHITE BLOOD COUNT (AUTO) 10.3 K/uL (4.3-11.0)
[2023-05-20 06:01] LABS: CALCIUM, SERUM 10.8 mg/dL (8.5-10.1); CREATININE 1.3 mg/dL (0.6-1.3); POTASSIUM 3.6 mmol/L (3.5-5.1)
[2023-05-20] MEDS: BLOOD SUGAR DIAGNOSTIC 1 EACH STRIP IN SCH ×3 (07:43→22:29)
[2023-05-20] MEDS: INSULIN REGULAR, HUMAN 100 UNIT/ML 3 ML VIAL SQ PRN ×2 (07:44→22:33)
[2023-05-20 08:00] VITALS: BP 152/62; TEMP 98.4; O2SAT 95
[2023-05-20] MEDS: PANTOPRAZOLE 40 MG TABLET.DR PO SCH (08:28)
[2023-05-20] MEDS: GLUCERNA SHAKE 237 ML CAN PO SCH (08:28)
[2023-05-20] MEDS: FOLIC ACID 1 MG TABLET PO SCH (09:29)
[2023-05-20] MEDS: SENNOSIDES 8.6 MG TABLET PO SCH (09:29)
[2023-05-20] MEDS: MEGESTROL ACETATE SUSP 400 MG/10 ML UDC PO SCH (09:29)
[2023-05-20] MEDS: CYANOCOBALAMIN 500 MCG TABLET PO SCH (09:30)
[2023-05-20] MEDS: MEMANTINE HCL 5 MG TABLET PO SCH (09:30)
[2023-05-20] MEDS: DOCUSATE SODIUM 100 MG CAPSULE PO SCH (09:30)
[2023-05-20] MEDS ORDERED: TRAM50TA2 PO (13:28)
[2023-05-20] MEDS ORDERED: ACET325T53 PO (13:28)
[2023-05-20] MEDS ORDERED: MEGE400O5 PO (13:28)
[2023-05-20] MEDS ORDERED: CEFE2FRO IV (13:28)
[2023-05-20] MEDS ORDERED: PANT40TA49 PO (13:28)
[2023-05-20] MEDS ORDERED: NUT.237L45 PO (13:28)
[2023-05-20] MEDS: CEFEPIME 2 GM in IV D5W 100 ML IV SCH (14:18)
[2023-05-20 20:00] VITALS: BP 155/78; TEMP 97; O2SAT 100
[2023-05-20] MEDS: ENOXAPARIN SODIUM 30 MG/0.3 ML DISP.SYRIN SQ SCH (21:52)
[2023-05-21] MEDS: PANTOPRAZOLE 40 MG TABLET.DR PO SCH (07:34)
[2023-05-21 08:00] VITALS: BP 154/67; TEMP 98.2; O2SAT 99
[2023-05-21] MEDS: BLOOD SUGAR DIAGNOSTIC 1 EACH STRIP IN SCH ×4 (08:04→21:06)
[2023-05-21] MEDS: INSULIN REGULAR, HUMAN 100 UNIT/ML 3 ML VIAL SQ PRN ×3 (08:05→16:53)
[2023-05-21] MEDS: GLUCERNA SHAKE 237 ML CAN PO SCH ×2 (08:13→16:51)
[2023-05-21] MEDS: DOCUSATE SODIUM 100 MG CAPSULE PO SCH (09:19)
[2023-05-21] MEDS: FOLIC ACID 1 MG TABLET PO SCH (09:19)
[2023-05-21] MEDS: MEGESTROL ACETATE SUSP 400 MG/10 ML UDC PO SCH ×2 (09:19→20:56)
[2023-05-21] MEDS: CYANOCOBALAMIN 500 MCG TABLET PO SCH (09:19)
[2023-05-21] MEDS: SENNOSIDES 8.6 MG TABLET PO SCH (09:19)
[2023-05-21] MEDS: MEMANTINE HCL 5 MG TABLET PO SCH (09:19)
[2023-05-21] MEDS: CEFEPIME 2 GM in IV D5W 100 ML IV SCH (13:02)
[2023-05-21 16:00] VITALS: BP 169/73; TEMP 98.4; O2SAT 100
[2023-05-21] MEDS: CLONIDINE HCL 0.1 MG TABLET PO PRN (17:22)
[2023-05-21 18:00] VITALS: BP 144/73; TEMP 98.1; O2SAT 98
[2023-05-21 20:00] VITALS: BP 145/59; TEMP 97.3; O2SAT 99
[2023-05-21] MEDS: ENOXAPARIN SODIUM 30 MG/0.3 ML DISP.SYRIN SQ SCH (20:54)
[2023-05-22 04:00] VITALS: BP 153/64; TEMP 97.4; O2SAT 98
[2023-05-22] MEDS: BLOOD SUGAR DIAGNOSTIC 1 EACH STRIP IN SCH ×4 (06:40→21:17)
[2023-05-22] MEDS: PANTOPRAZOLE 40 MG TABLET.DR PO SCH (07:48)
[2023-05-22] MEDS: GLUCERNA SHAKE 237 ML CAN PO SCH ×2 (08:00→17:00)
[2023-05-22 08:08] LABS: BASOPHILS % (AUTO) 0.2 % (0.0-2.0); EOSINOPHILS # (AUTO) 0.2 K/uL (0.0-0.7); EOSINOPHILS % (AUTO) 1.1 % (0.0-6.0); HEMATOCRIT 30 % (39-51); HEMOGLOBIN 9.5 g/dL (13.5-17.5); LYMPHOCYTES # (AUTO) 1.7 K/uL (0.8-4.8); MEAN CORPUSCULAR HEMOGLOBIN 29 PG (26.0-33.0); MEAN CORPUSCULAR HGB CONC 31 g/dl (31.0-36.0); MEAN CORPUSCULAR VOLUME 92 fL (80-96); MONOCYTES # (AUTO) 0.8 K/uL (0.1-1.30); NEUTROPHILS # (AUTO) 11.5 K/uL (1.8-8.9); NEUTROPHILS % (AUTO) 80.7 % (43.0-81.0); PLATELET COUNT (AUTO) 362 K/uL (150-450); RED BLOOD CELL COUNT(AUTO) 3.29 MIL/uL (4.5-6.0); RED CELL DISTRIBUTION WIDTH 14.8 % (11.5-15.0); WHITE BLOOD COUNT (AUTO) 14.2 K/uL (4.3-11.0)
[2023-05-22 08:47] LABS: C-REACTIVE PROTEIN 8.4 mg/dL (0.0-0.9)
[2023-05-22 09:13] LABS: CALCIUM, SERUM 11.1 mg/dL (8.5-10.1); CARBON DIOXIDE 19 mmol/L (21-32); CHLORIDE 110 mmol/L (98-107); CREATININE 1.4 mg/dL (0.6-1.3); GLUCOSE 102 mg/dL (74-106); POTASSIUM 3.6 mmol/L (3.5-5.1); SODIUM SERUM 139 mmol/L (136-145); UREA NITROGEN, BLOOD 20 mg/dL (7-18)
[2023-05-22] MEDS: SENNOSIDES 8.6 MG TABLET PO SCH (09:31)
[2023-05-22] MEDS: MEGESTROL ACETATE SUSP 400 MG/10 ML UDC PO SCH ×2 (09:31→21:17)
[2023-05-22] MEDS: DOCUSATE SODIUM 100 MG CAPSULE PO SCH (09:31)
[2023-05-22] MEDS: MEMANTINE HCL 5 MG TABLET PO SCH (09:31)
[2023-05-22] MEDS: CYANOCOBALAMIN 500 MCG TABLET PO SCH (09:32)
[2023-05-22] MEDS: FOLIC ACID 1 MG TABLET PO SCH (09:32)
[2023-05-22] MEDS: AMLODIPINE BESYLATE 2.5 MG TABLET PO SCH (09:34)
[2023-05-22] MEDS: IV D5/ 0.9% NACL 1,000 ML IV PRN (10:44)
[2023-05-22] MEDS: INSULIN REGULAR, HUMAN 100 UNIT/ML 3 ML VIAL SQ PRN ×2 (18:23→21:16)
[2023-05-22] MEDS: ENOXAPARIN SODIUM 30 MG/0.3 ML DISP.SYRIN SQ SCH (21:16)
[2023-05-23 07:17] LABS: BASOPHILS % (AUTO) 0.3 % (0.0-2.0); EOSINOPHILS # (AUTO) 0.1 K/uL (0.0-0.7); EOSINOPHILS % (AUTO) 1.1 % (0.0-6.0); HEMATOCRIT 31 % (39-51); HEMOGLOBIN 9.5 g/dL (13.5-17.5); LYMPHOCYTES # (AUTO) 1.2 K/uL (0.8-4.8); LYMPHOCYTES % (AUTO) 9.2 % (20.0-44.0); MEAN CORPUSCULAR HEMOGLOBIN 29 PG (26.0-33.0); MEAN CORPUSCULAR HGB CONC 31 g/dl (31.0-36.0); MEAN CORPUSCULAR VOLUME 93 fL (80-96); MONOCYTES # (AUTO) 0.7 K/uL (0.1-1.30); MONOCYTES % (AUTO) 5.2 % (2.0-12.0); NEUTROPHILS # (AUTO) 11.3 K/uL (1.8-8.9); NEUTROPHILS % (AUTO) 84.2 % (43.0-81.0); PLATELET COUNT (AUTO) 342 K/uL (150-450); RED BLOOD CELL COUNT(AUTO) 3.28 MIL/uL (4.5-6.0); RED CELL DISTRIBUTION WIDTH 15.4 % (11.5-15.0); WHITE BLOOD COUNT (AUTO) 13.4 K/uL (4.3-11.0)
[2023-05-23 07:33] LABS: CALCIUM, SERUM 11.2 mg/dL (8.5-10.1); CARBON DIOXIDE 19 mmol/L (21-32); CHLORIDE 112 mmol/L (98-107); CREATININE 1.4 mg/dL (0.6-1.3); GLUCOSE 142 mg/dL (74-106); POTASSIUM 3.6 mmol/L (3.5-5.1); SODIUM SERUM 142 mmol/L (136-145); UREA NITROGEN, BLOOD 18 mg/dL (7-18)
[2023-05-23] MEDS: BLOOD SUGAR DIAGNOSTIC 1 EACH STRIP IN SCH ×4 (08:53→22:15)
[2023-05-23] MEDS: IV D5/ 0.9% NACL 1,000 ML IV PRN ×2 (08:54→18:20)
[2023-05-23] MEDS: SENNOSIDES 8.6 MG TABLET PO SCH (08:55)
[2023-05-23] MEDS: MEMANTINE HCL 5 MG TABLET PO SCH (08:55)
[2023-05-23] MEDS: CYANOCOBALAMIN 500 MCG TABLET PO SCH (08:55)
[2023-05-23] MEDS: MEGESTROL ACETATE SUSP 400 MG/10 ML UDC PO SCH ×2 (08:55→22:09)
[2023-05-23] MEDS: PANTOPRAZOLE 40 MG TABLET.DR PO SCH (08:55)
[2023-05-23] MEDS: FOLIC ACID 1 MG TABLET PO SCH (08:55)
[2023-05-23] MEDS: DOCUSATE SODIUM 100 MG CAPSULE PO SCH (08:55)
[2023-05-23] MEDS: AMLODIPINE BESYLATE 2.5 MG TABLET PO SCH (08:56)
[2023-05-23] MEDS: GLUCERNA SHAKE 237 ML CAN PO SCH ×2 (09:00→16:21)
[2023-05-23] MEDS: INSULIN REGULAR, HUMAN 100 UNIT/ML 3 ML VIAL SQ PRN ×2 (09:02→22:16)
[2023-05-23 12:00] VITALS: BP 144/68; O2SAT 100
[2023-05-23] MEDS: ENOXAPARIN SODIUM 30 MG/0.3 ML DISP.SYRIN SQ SCH (21:59)
[2023-05-23] MEDS: CLONIDINE HCL 0.1 MG TABLET PO PRN (22:11)
[2023-05-23 22:36] VITALS: BP 160/58; TEMP 97; O2SAT 98
[2023-05-24] MEDS: PANTOPRAZOLE 40 MG TABLET.DR PO SCH ×2 (07:30→09:37)
[2023-05-24] MEDS: BLOOD SUGAR DIAGNOSTIC 1 EACH STRIP IN SCH ×4 (07:38→22:40)
[2023-05-24 08:00] VITALS: BP 133/77; TEMP 97.7; O2SAT 100
[2023-05-24 08:06] LABS: BASOPHILS % (AUTO) 0.1 % (0.0-2.0); EOSINOPHILS # (AUTO) 0.1 K/uL (0.0-0.7); EOSINOPHILS % (AUTO) 0.3 % (0.0-6.0); HEMATOCRIT 27 % (39-51); HEMOGLOBIN 8.6 g/dL (13.5-17.5); LYMPHOCYTES # (AUTO) 1.2 K/uL (0.8-4.8); LYMPHOCYTES % (AUTO) 7.6 % (20.0-44.0); MEAN CORPUSCULAR HEMOGLOBIN 29 PG (26.0-33.0); MEAN CORPUSCULAR HGB CONC 32 g/dl (31.0-36.0); MEAN CORPUSCULAR VOLUME 92 fL (80-96); MONOCYTES # (AUTO) 0.7 K/uL (0.1-1.30); MONOCYTES % (AUTO) 4.6 % (2.0-12.0); NEUTROPHILS # (AUTO) 13.2 K/uL (1.8-8.9); NEUTROPHILS % (AUTO) 87.4 % (43.0-81.0); PLATELET COUNT (AUTO) 312 K/uL (150-450); RED BLOOD CELL COUNT(AUTO) 2.95 MIL/uL (4.5-6.0); RED CELL DISTRIBUTION WIDTH 15.1 % (11.5-15.0); WHITE BLOOD COUNT (AUTO) 15.2 K/uL (4.3-11.0)
[2023-05-24] MEDS: GLUCERNA SHAKE 237 ML CAN PO SCH ×2 (08:08→17:22)
[2023-05-24 08:21] LABS: CALCIUM, SERUM 11.3 mg/dL (8.5-10.1); CREATININE 1.3 mg/dL (0.6-1.3); POTASSIUM 3.2 mmol/L (3.5-5.1)
[2023-05-24] MEDS: SENNOSIDES 8.6 MG TABLET PO SCH ×2 (09:00→09:35)
[2023-05-24] MEDS: DOCUSATE SODIUM 100 MG CAPSULE PO SCH ×2 (09:00→09:35)
[2023-05-24] MEDS: FOLIC ACID 1 MG TABLET PO SCH ×2 (09:00→09:36)
[2023-05-24] MEDS: CYANOCOBALAMIN 500 MCG TABLET PO SCH ×2 (09:00→09:35)
[2023-05-24] MEDS: MEMANTINE HCL 5 MG TABLET PO SCH ×2 (09:00→09:35)
[2023-05-24] MEDS: AMLODIPINE BESYLATE 2.5 MG TABLET PO SCH ×2 (09:00→09:38)
[2023-05-24] MEDS: IV D5/ 0.9% NACL 1,000 ML IV PRN (09:34)
[2023-05-24] MEDS: MEGESTROL ACETATE SUSP 400 MG/10 ML UDC PO SCH (09:35)
[2023-05-24] MEDS: POTASSIUM CL. PREMIX PERIPHER. 50 ML IV SCH ×2 (10:18→11:29)
[2023-05-24] MEDS ORDERED: POTASSIUM CHLORIDE 20 MEQ TAB.PRT.SR PO SCH (10:30)
[2023-05-24 16:00] VITALS: BP 110/55; TEMP 98.1; O2SAT 97
[2023-05-24] MEDS: MIRTAZAPINE 15 MG TABLET PO SCH (21:44)
[2023-05-24] MEDS: ENOXAPARIN SODIUM 30 MG/0.3 ML DISP.SYRIN SQ SCH (21:47)
[2023-05-24] MEDS: INSULIN REGULAR, HUMAN 100 UNIT/ML 3 ML VIAL SQ PRN (22:43)
[2023-05-25] VITALS: BP 123/66; TEMP 94.5; O2SAT 94
[2023-05-25] MEDS: IV D5/ 0.9% NACL 1,000 ML IV PRN (03:24)
[2023-05-25 07:22] LABS: BASOPHILS % (AUTO) 0.1 % (0.0-2.0); EOSINOPHILS % (AUTO) 0.2 % (0.0-6.0); HEMATOCRIT 27 % (39-51); HEMOGLOBIN 8.6 g/dL (13.5-17.5); LYMPHOCYTES # (AUTO) 0.7 K/uL (0.8-4.8); LYMPHOCYTES % (AUTO) 4.3 % (20.0-44.0); MEAN CORPUSCULAR HEMOGLOBIN 29 PG (26.0-33.0); MEAN CORPUSCULAR HGB CONC 32 g/dl (31.0-36.0); MEAN CORPUSCULAR VOLUME 92 fL (80-96); MONOCYTES # (AUTO) 0.7 K/uL (0.1-1.30); MONOCYTES % (AUTO) 4.1 % (2.0-12.0); NEUTROPHILS # (AUTO) 15.7 K/uL (1.8-8.9); NEUTROPHILS % (AUTO) 91.3 % (43.0-81.0); PLATELET COUNT (AUTO) 329 K/uL (150-450); RED BLOOD CELL COUNT(AUTO) 2.94 MIL/uL (4.5-6.0); RED CELL DISTRIBUTION WIDTH 15.1 % (11.5-15.0); WHITE BLOOD COUNT (AUTO) 17.2 K/uL (4.3-11.0)
[2023-05-25] MEDS: PANTOPRAZOLE 40 MG TABLET.DR PO SCH (07:30)
[2023-05-25 08:00] VITALS: BP 123/51; TEMP 97.6; O2SAT 91
[2023-05-25] MEDS: GLUCERNA SHAKE 237 ML CAN PO SCH ×2 (08:00→16:27)
[2023-05-25 08:05] LABS: ALANINE AMINOTRANSFERASE 14 U/L (12-78); ALKALINE PHOSPHATASE 66 U/L (46-116); ASPARTATE AMINOTRANSFERASE 17 U/L (15-37); BILIRUBIN,TOTAL 0.2 mg/dL (0.2-1.0); CALCIUM, SERUM 11.1 mg/dL (8.5-10.1); CARBON DIOXIDE 17 mmol/L (21-32); CHLORIDE 121 mmol/L (98-107); CREATININE 1.7 mg/dL (0.6-1.3); GLUCOSE 90 mg/dL (74-106); MAGNESIUM 1.8 mg/dL (1.8-2.4); POTASSIUM 3.6 mmol/L (3.5-5.1); SODIUM SERUM 148 mmol/L (136-145); TOTAL PROTEIN, SERUM 6.2 g/dL (6.4-8.2); UREA NITROGEN, BLOOD 20 mg/dL (7-18)
[2023-05-25] MEDS: BLOOD SUGAR DIAGNOSTIC 1 EACH STRIP IN SCH ×4 (08:06→21:12)
[2023-05-25 08:33] LABS: ALBUMIN 1.4 g/dL (3.4-5.0)
[2023-05-25] MEDS: AMLODIPINE BESYLATE 2.5 MG TABLET PO SCH (09:00)
[2023-05-25] MEDS: CYANOCOBALAMIN 500 MCG TABLET PO SCH (09:00)
[2023-05-25] MEDS: MEMANTINE HCL 5 MG TABLET PO SCH (09:00)
[2023-05-25] MEDS ORDERED: CEFEPIME 2 GM in IV D5W 100 ML IV SCH (09:00)
[2023-05-25] MEDS: DOCUSATE SODIUM 100 MG CAPSULE PO SCH (09:00)
[2023-05-25] MEDS: SENNOSIDES 8.6 MG TABLET PO SCH (09:00)
[2023-05-25] MEDS: FOLIC ACID 1 MG TABLET PO SCH (09:00)
[2023-05-25] MEDS ORDERED: POTASSIUM PHOSPHATE MM 15 MMOL in IV NS 0.9% 250 ML IV SCH (13:30)
[2023-05-25] MEDS ORDERED: IV 1/2NS 1000 ML 1,000 ML IV PRN (13:30)
[2023-05-25] MEDS: POTASSIUM PHOSPHATE MM 7.5 MMOL in IV NS 0.9% 100 ML IV SCH ×2 (14:54→18:06)
[2023-05-25 16:00] VITALS: BP 125/55; TEMP 97.9; O2SAT 95
[2023-05-25] MEDS ORDERED: IV NS 0.9% 500 ML IV PRN (17:30)
[2023-05-25] MEDS: MIRTAZAPINE 15 MG TABLET PO SCH (21:04)
[2023-05-25] MEDS: ENOXAPARIN SODIUM 30 MG/0.3 ML DISP.SYRIN SQ SCH (21:04)
[2023-05-26] VITALS: BP 138/65; TEMP 98.2; O2SAT 95
[2023-05-26 07:27] LABS: APPEARANCE,URINE CLEAR (CLEAR); BILIRUBIN,URINE NEGATIVE (NEGATIVE); BLOOD, URINE NEGATIVE Ery/uL (NEGATIVE); COLOR,URINE YELLOW (YELLOW); KETONES,URINE NEGATIVE (NEGATIVE); LEUKOCYTE ESTERASE ,URINE NEGATIVE (NEGATIVE); NITRITE, URINE NEGATIVE (NEGATIVE); PH,URINE 6.5 (5.0-8.0); PROTEIN,URINE NEGATIVE (NEGATIVE); UGLUCOSE NEGATIVE (NEGATIVE); UROBILINOGEN,URINE 0.2 EU/dL (0.2)
[2023-05-26] MEDS: PANTOPRAZOLE 40 MG TABLET.DR PO SCH (07:30)
[2023-05-26 07:36] LABS: CALCIUM, SERUM 10.1 mg/dL (8.5-10.1); CARBON DIOXIDE 16 mmol/L (21-32); CHLORIDE 120 mmol/L (98-107); CREATININE 2.7 mg/dL (0.6-1.3); GLUCOSE 69 mg/dL (74-106); POTASSIUM 4.2 mmol/L (3.5-5.1); SODIUM SERUM 148 mmol/L (136-145); UREA NITROGEN, BLOOD 26 mg/dL (7-18)
[2023-05-26 07:58] LABS: HEMATOCRIT 26 % (39-51); HEMOGLOBIN 8.3 g/dL (13.5-17.5); LYMPHOCYTES # (AUTO) 0.7 K/uL (0.8-4.8); LYMPHOCYTES % (AUTO) 3.4 % (20.0-44.0); MEAN CORPUSCULAR HEMOGLOBIN 29 PG (26.0-33.0); MEAN CORPUSCULAR HGB CONC 31 g/dl (31.0-36.0); MEAN CORPUSCULAR VOLUME 92 fL (80-96); MONOCYTES # (AUTO) 0.5 K/uL (0.1-1.30); MONOCYTES % (AUTO) 2.3 % (2.0-12.0); NEUTROPHILS # (AUTO) 18.3 K/uL (1.8-8.9); NEUTROPHILS % (AUTO) 94.3 % (43.0-81.0); PLATELET COUNT (AUTO) 242 K/uL (150-450); RED BLOOD CELL COUNT(AUTO) 2.86 MIL/uL (4.5-6.0); RED CELL DISTRIBUTION WIDTH 15.8 % (11.5-15.0); WHITE BLOOD COUNT (AUTO) 19.5 K/uL (4.3-11.0)
[2023-05-26 08:00] VITALS: BP 116/79; TEMP 97.2; O2SAT 97
[2023-05-26] MEDS: GLUCERNA SHAKE 237 ML CAN PO SCH ×2 (08:00→16:04)
[2023-05-26] MEDS: BLOOD SUGAR DIAGNOSTIC 1 EACH STRIP IN SCH ×4 (08:26→22:06)
[2023-05-26] MEDS: AMLODIPINE BESYLATE 2.5 MG TABLET PO SCH (08:36)
[2023-05-26] MEDS: MEMANTINE HCL 5 MG TABLET PO SCH (08:36)
[2023-05-26] MEDS: CYANOCOBALAMIN 500 MCG TABLET PO SCH (08:36)
[2023-05-26] MEDS: FOLIC ACID 1 MG TABLET PO SCH (08:36)
[2023-05-26] MEDS: DOCUSATE SODIUM 100 MG CAPSULE PO SCH (08:36)
[2023-05-26] MEDS: SENNOSIDES 8.6 MG TABLET PO SCH (08:36)
[2023-05-26] MEDS: IV D5/0.45 NACL 1,000 ML IV PRN ×2 (09:11→18:39)
[2023-05-26] MEDS: CEFEPIME 2 GM in IV D5W 100 ML IV SCH (15:52)
[2023-05-26 16:00] VITALS: BP 139/95; TEMP 96.4; O2SAT 99
[2023-05-26] MEDS: INSULIN REGULAR, HUMAN 100 UNIT/ML 3 ML VIAL SQ PRN ×2 (16:49→22:06)
[2023-05-26 20:31] VITALS: O2SAT 88
[2023-05-26 20:54] VITALS: BP 121/50; TEMP 100.2; O2SAT 95
[2023-05-26] MEDS: ENOXAPARIN SODIUM 30 MG/0.3 ML DISP.SYRIN SQ SCH (21:54)
[2023-05-26 22:00] VITALS: TEMP 99.7; O2SAT 95
[2023-05-26] MEDS: MIRTAZAPINE 15 MG TABLET PO SCH (22:00)
[2023-05-27] VITALS: BP 111/45; TEMP 99.3; O2SAT 98
[2023-05-27] MEDS: IV D5/0.45 NACL 1,000 ML IV PRN ×2 (04:43→15:28)
[2023-05-27 05:00] VITALS: BP 114/46; TEMP 97; O2SAT 88
[2023-05-27 05:30] VITALS: O2SAT 97
[2023-05-27 07:24] LABS: EOSINOPHILS # (AUTO) 0.1 K/uL (0.0-0.7); EOSINOPHILS % (AUTO) 0.4 % (0.0-6.0); HEMATOCRIT 25 % (39-51); HEMOGLOBIN 7.8 g/dL (13.5-17.5); LYMPHOCYTES # (AUTO) 0.9 K/uL (0.8-4.8); LYMPHOCYTES % (AUTO) 6.2 % (20.0-44.0); MEAN CORPUSCULAR HEMOGLOBIN 30 PG (26.0-33.0); MEAN CORPUSCULAR HGB CONC 32 g/dl (31.0-36.0); MEAN CORPUSCULAR VOLUME 93 fL (80-96); MONOCYTES # (AUTO) 0.3 K/uL (0.1-1.30); MONOCYTES % (AUTO) 2.3 % (2.0-12.0); NEUTROPHILS # (AUTO) 13.6 K/uL (1.8-8.9); NEUTROPHILS % (AUTO) 91.1 % (43.0-81.0); PLATELET COUNT (AUTO) 188 K/uL (150-450); RED BLOOD CELL COUNT(AUTO) 2.64 MIL/uL (4.5-6.0); RED CELL DISTRIBUTION WIDTH 16.4 % (11.5-15.0); WHITE BLOOD COUNT (AUTO) 14.9 K/uL (4.3-11.0)
[2023-05-27] MEDS: PANTOPRAZOLE 40 MG TABLET.DR PO SCH (07:30)
[2023-05-27 07:36] LABS: CALCIUM, SERUM 9.7 mg/dL (8.5-10.1); CARBON DIOXIDE 13 mmol/L (21-32); CHLORIDE 117 mmol/L (98-107); CREATININE 3.4 mg/dL (0.6-1.3); GLUCOSE 140 mg/dL (74-106); MAGNESIUM 1.7 mg/dL (1.8-2.4); POTASSIUM 3.7 mmol/L (3.5-5.1); SODIUM SERUM 144 mmol/L (136-145); UREA NITROGEN, BLOOD 37 mg/dL (7-18)
[2023-05-27 08:00] VITALS: BP 110/51; TEMP 96.4; O2SAT 100
[2023-05-27] MEDS: GLUCERNA SHAKE 237 ML CAN PO SCH (08:00)
[2023-05-27] MEDS: BLOOD SUGAR DIAGNOSTIC 1 EACH STRIP IN SCH ×4 (08:01→21:25)
[2023-05-27] MEDS: FOLIC ACID 1 MG TABLET PO SCH (08:01)
[2023-05-27] MEDS: DOCUSATE SODIUM 100 MG CAPSULE PO SCH (08:01)
[2023-05-27] MEDS: AMLODIPINE BESYLATE 2.5 MG TABLET PO SCH (08:02)
[2023-05-27] MEDS: CYANOCOBALAMIN 500 MCG TABLET PO SCH (08:02)
[2023-05-27] MEDS: SENNOSIDES 8.6 MG TABLET PO SCH (08:02)
[2023-05-27] MEDS: MEMANTINE HCL 5 MG TABLET PO SCH (08:02)
[2023-05-27] MEDS ORDERED: Magnesium 1GM/D5W 100ML PREMIX PIGGYBACK IV ONE ×2 (09:30)
[2023-05-27 09:37] LABS: BAND % (MANUAL) 23 % (0.0-5.0); LYMPHOCYTES % (MANUAL) 4 % (16-48); NEUTROPHILS % (MANUAL) 73 (42-76); PLATELET ESTIMATE ADEQUATE
[2023-05-27] MEDS ORDERED: GLUCERNA 1.2 1,000 ML BOTTLE NG PRN ×2 (12:00→12:30)
[2023-05-27] MEDS: INSULIN REGULAR, HUMAN 100 UNIT/ML 3 ML VIAL SQ PRN ×3 (12:22→21:25)
[2023-05-27] MEDS: CEFEPIME 2 GM in IV D5W 100 ML IV SCH (15:00)
[2023-05-27 16:00] VITALS: BP 110/45; TEMP 98.4; O2SAT 93
[2023-05-27 17:39] LABS: ABG BASE EXCESS -8.4 mmol/L; ABG OXYGEN SATURATION 92.6 % (92.0-98.5); ABG PCO2 21.5 mmHg (35.0-45.0); ABG PH 7.434 (7.350-7.450); ABG PO2 63.9 mmHg (75.0-100.0); ABG TOTAL HEMOGLOBIN 10.7 G/dL (13.5-18.0); AaDO2 124.7 mmHg; COHb 0.5 % (0.5-1.5); MetHb 0.3 % (0.0-1.5); O2Hb 91.9 % (94.0-97.0); SITE, ABG Right Radial; VENT MODE, BG N/C
[2023-05-27 20:00] VITALS: BP 138/54; TEMP 99.7; O2SAT 96
[2023-05-27] MEDS: ENOXAPARIN SODIUM 30 MG/0.3 ML DISP.SYRIN SQ SCH ×2 (21:00→21:27)
[2023-05-27] MEDS: MIRTAZAPINE 15 MG TABLET PO SCH (21:25)
[2023-05-28] VITALS (23 sets, daily range): BP systolic 110–161; BP diastolic 50–100; TEMP 97.7–98.1; O2SAT 89–100
[2023-05-28 07:37] LABS: EOSINOPHILS % (AUTO) 0.2 % (0.0-6.0); HEMATOCRIT 25 % (39-51); HEMOGLOBIN 7.5 g/dL (13.5-17.5); LYMPHOCYTES # (AUTO) 0.9 K/uL (0.8-4.8); LYMPHOCYTES % (AUTO) 4.7 % (20.0-44.0); MEAN CORPUSCULAR HEMOGLOBIN 29 PG (26.0-33.0); MEAN CORPUSCULAR HGB CONC 30 g/dl (31.0-36.0); MEAN CORPUSCULAR VOLUME 94 fL (80-96); MONOCYTES # (AUTO) 0.6 K/uL (0.1-1.30); MONOCYTES % (AUTO) 3.3 % (2.0-12.0); NEUTROPHILS # (AUTO) 17.1 K/uL (1.8-8.9); NEUTROPHILS % (AUTO) 91.8 % (43.0-81.0); PLATELET COUNT (AUTO) 167 K/uL (150-450); RED BLOOD CELL COUNT(AUTO) 2.65 MIL/uL (4.5-6.0); RED CELL DISTRIBUTION WIDTH 16.6 % (11.5-15.0); WHITE BLOOD COUNT (AUTO) 18.6 K/uL (4.3-11.0)
[2023-05-28] MEDS: BLOOD SUGAR DIAGNOSTIC 1 EACH STRIP IN SCH ×4 (07:51→22:10)
[2023-05-28 08:01] LABS: ALANINE AMINOTRANSFERASE 12 U/L (12-78); ALKALINE PHOSPHATASE 100 U/L (46-116); ASPARTATE AMINOTRANSFERASE 26 U/L (15-37); BILIRUBIN,DIRECT 0.2 mg/dL (0.0-0.2); BILIRUBIN,TOTAL 0.3 mg/dL (0.2-1.0); CALCIUM, SERUM 10.2 mg/dL (8.5-10.1); CARBON DIOXIDE 15 mmol/L (21-32); CHLORIDE 117 mmol/L (98-107); GLUCOSE 104 mg/dL (74-106); MAGNESIUM 2.2 mg/dL (1.8-2.4); PHOSPHORUS 3.5 mg/dL (2.5-4.9); POTASSIUM 4.2 mmol/L (3.5-5.1); SODIUM SERUM 143 mmol/L (136-145); TOTAL PROTEIN, SERUM 5.8 g/dL (6.4-8.2); UREA NITROGEN, BLOOD 48 mg/dL (7-18)
[2023-05-28 08:06] LABS: ALBUMIN 1.1 g/dL (3.4-5.0)
[2023-05-28] MEDS: MEMANTINE HCL 5 MG TABLET PO SCH (08:36)
[2023-05-28] MEDS: AMLODIPINE BESYLATE 2.5 MG TABLET PO SCH (08:37)
[2023-05-28] MEDS: CYANOCOBALAMIN 500 MCG TABLET PO SCH (08:37)
[2023-05-28] MEDS: DOCUSATE SODIUM 100 MG CAPSULE PO SCH (08:37)
[2023-05-28] MEDS: FOLIC ACID 1 MG TABLET PO SCH (08:37)
[2023-05-28] MEDS: SENNOSIDES 8.6 MG TABLET PO SCH (08:37)
[2023-05-28] MEDS: PANTOPRAZOLE 40 MG TABLET.DR PO SCH (08:40)
[2023-05-28] MEDS: MEROPENEM 500 MG in IV NS 0.9% 50 ML IV SCH ×2 (10:33→21:00)
[2023-05-28] MEDS ORDERED: Sodium Bicarbonate 100 MEQ in IV D5W 1,000 ML IV PRN (14:00)
[2023-05-28] MEDS ORDERED: FUROSEMIDE 100 MG/10 ML VIAL IV ONE (14:00)
[2023-05-28] MEDS ORDERED: PROPOFOL 100 ML IV PRN (17:30)
[2023-05-28] MEDS: PROPOFOL 100 ML IV PRN (17:54)
[2023-05-28] MEDS ORDERED: ETOMIDATE 2 MG/ML VIAL IV ONE (19:21)
[2023-05-28] MEDS ORDERED: ROCURONIUM BROMIDE 50 MG/5 ML IV ONE (19:21)
[2023-05-28] MEDS: ENOXAPARIN SODIUM 30 MG/0.3 ML DISP.SYRIN SQ SCH (21:00)
[2023-05-28] MEDS: MIRTAZAPINE 15 MG TABLET PO SCH (22:11)
[2023-05-28] MEDS: DOCUSATE SODIUM LIQ 100 MG/10 ML UDC GT SCH (22:11)
[2023-05-29] VITALS (54 sets, daily range): BP systolic 84–154; BP diastolic 42–66; TEMP 97–97.7; O2SAT 88–100
[2023-05-29] MEDS: PROPOFOL 100 ML IV PRN ×2 (04:01→16:30)
[2023-05-29 05:53] LABS: BASOPHILS % (AUTO) 0.1 % (0.0-2.0); EOSINOPHILS # (AUTO) 0.1 K/uL (0.0-0.7); EOSINOPHILS % (AUTO) 0.4 % (0.0-6.0); HEMATOCRIT 22 % (39-51); LYMPHOCYTES # (AUTO) 0.9 K/uL (0.8-4.8); LYMPHOCYTES % (AUTO) 5.5 % (20.0-44.0); MEAN CORPUSCULAR HEMOGLOBIN 30 PG (26.0-33.0); MEAN CORPUSCULAR HGB CONC 32 g/dl (31.0-36.0); MEAN CORPUSCULAR VOLUME 93 fL (80-96); MONOCYTES # (AUTO) 0.4 K/uL (0.1-1.30); MONOCYTES % (AUTO) 2.7 % (2.0-12.0); NEUTROPHILS # (AUTO) 15.4 K/uL (1.8-8.9); NEUTROPHILS % (AUTO) 91.3 % (43.0-81.0); PLATELET COUNT (AUTO) 206 K/uL (150-450); RED BLOOD CELL COUNT(AUTO) 2.35 MIL/uL (4.5-6.0); RED CELL DISTRIBUTION WIDTH 16.4 % (11.5-15.0); WHITE BLOOD COUNT (AUTO) 16.9 K/uL (4.3-11.0)
[2023-05-29 05:57] LABS: HEMOGLOBIN 6.9 g/dL (13.5-17.5)
[2023-05-29] MEDS: BLOOD SUGAR DIAGNOSTIC 1 EACH STRIP IN SCH ×4 (08:13→17:49)
[2023-05-29] MEDS: AMLODIPINE BESYLATE 2.5 MG TABLET PO SCH (08:31)
[2023-05-29] MEDS: MEROPENEM 500 MG in IV NS 0.9% 50 ML IV SCH ×2 (08:37→20:00)
[2023-05-29] MEDS: FOLIC ACID 1 MG TABLET PO SCH (08:37)
[2023-05-29] MEDS: MEMANTINE HCL 5 MG TABLET PO SCH (08:37)
[2023-05-29] MEDS: CYANOCOBALAMIN 500 MCG TABLET PO SCH (08:37)
[2023-05-29] MEDS: SENNOSIDES 8.6 MG TABLET PO SCH (08:37)
[2023-05-29] MEDS: PANTOPRAZOLE 40 MG TABLET.DR PO SCH (08:38)
[2023-05-29 10:08] LABS: CALCIUM, SERUM 9.8 mg/dL (8.5-10.1); CARBON DIOXIDE 13 mmol/L (21-32); CHLORIDE 115 mmol/L (98-107); CREATININE 4.5 mg/dL (0.6-1.3); GLUCOSE 159 mg/dL (74-106); MAGNESIUM 2.3 mg/dL (1.8-2.4); PHOSPHORUS 3.6 mg/dL (2.5-4.9); POTASSIUM 4.3 mmol/L (3.5-5.1); SODIUM SERUM 141 mmol/L (136-145); UREA NITROGEN, BLOOD 56 mg/dL (7-18)
[2023-05-29] MEDS: Sodium Bicarbonate 100 MEQ in IV D5W 1,000 ML IV SCH ×2 (10:30→22:20)
[2023-05-29 13:24] LABS: BAND % (MANUAL) 7 % (0.0-5.0); LYMPHOCYTES % (MANUAL) 4 % (16-48); MONOCYTES % (MANUAL) 4 % (0-11.0); NEUTROPHILS % (MANUAL) 85 (42-76); PLATELET ESTIMATE ADEQUATE
[2023-05-29 13:25] LABS: ANISOCYTOSIS 1+; OVALOCYTES 1+
[2023-05-29] MEDS: NOREPINEPHRINE 8 MG in IV NS 0.9% 242 ML IV PRN (15:39)
[2023-05-29] MEDS ORDERED: DEXTROSE 50%-WATER 50 ML DISP.SYRIN IV PRN (17:00)
[2023-05-29] MEDS ORDERED: VANCOMYCIN 1 GM in IV D5W 250ml IV ONE (21:00)
[2023-05-29] MEDS: DOCUSATE SODIUM LIQ 100 MG/10 ML UDC GT SCH (21:21)
[2023-05-29] MEDS: MIRTAZAPINE 15 MG TABLET PO SCH (21:22)
[2023-05-29] MEDS: ENOXAPARIN SODIUM 30 MG/0.3 ML DISP.SYRIN SQ SCH (21:22)
[2023-05-30] VITALS (95 sets, daily range): BP systolic 85–145; BP diastolic 27–100; TEMP 97.2–97.7; O2SAT 95–100
[2023-05-30] MEDS: BLOOD SUGAR DIAGNOSTIC 1 EACH STRIP IN SCH ×4 (00:12→18:51)
[2023-05-30] MEDS: INSULIN REGULAR, HUMAN 100 UNIT/ML 3 ML VIAL SQ PRN ×4 (00:19→18:59)
[2023-05-30] MEDS: PROPOFOL 100 ML IV PRN ×2 (03:01→11:46)
[2023-05-30 03:34] LABS: ABG BASE EXCESS -10.2 mmol/L; ABG OXYGEN SATURATION 94.1 % (92.0-98.5); ABG PCO2 22.3 mmHg (35.0-45.0); ABG PH 7.392 (7.350-7.450); ABG PO2 72.6 mmHg (75.0-100.0); ABG TOTAL HEMOGLOBIN 9.3 G/dL (13.5-18.0); AaDO2 330.7 mmHg; COHb 0.3 % (0.5-1.5); MetHb 0.3 % (0.0-1.5); O2Hb 93.5 % (94.0-97.0); SITE, ABG Right Radial; VENT MODE, BG SIMPLE MASK
[2023-05-30 03:34] LABS: ABG BASE EXCESS -10.7 mmol/L; ABG OXYGEN SATURATION 95.7 % (92.0-98.5); ABG PCO2 35.7 mmHg (35.0-45.0); ABG PH 7.255 (7.350-7.450); ABG PO2 92.8 mmHg (75.0-100.0); ABG TOTAL HEMOGLOBIN 8.5 G/dL (13.5-18.0); AaDO2 584.5 mmHg; COHb 0.3 % (0.5-1.5); MetHb 0.1 % (0.0-1.5); O2Hb 95.3 % (94.0-97.0); SITE, ABG Right Radial
[2023-05-30 03:34] LABS: ABG BASE EXCESS -9.7 mmol/L; ABG OXYGEN SATURATION 90.8 % (92.0-98.5); ABG PCO2 21.4 mmHg (35.0-45.0); ABG PH 7.416 (7.350-7.450); ABG PO2 58.1 mmHg (75.0-100.0); ABG TOTAL HEMOGLOBIN 8.5 G/dL (13.5-18.0); COHb 0.3 % (0.5-1.5); MetHb 0.3 % (0.0-1.5); O2Hb 90.3 % (94.0-97.0); SITE, ABG Left Radial
[2023-05-30 05:45] LABS: BASOPHILS % (AUTO) 0.1 % (0.0-2.0); EOSINOPHILS # (AUTO) 0.2 K/uL (0.0-0.7); EOSINOPHILS % (AUTO) 0.8 % (0.0-6.0); HEMATOCRIT 27 % (39-51); HEMOGLOBIN 8.6 g/dL (13.5-17.5); LYMPHOCYTES # (AUTO) 1.1 K/uL (0.8-4.8); LYMPHOCYTES % (AUTO) 4.8 % (20.0-44.0); MEAN CORPUSCULAR HEMOGLOBIN 29 PG (26.0-33.0); MEAN CORPUSCULAR HGB CONC 32 g/dl (31.0-36.0); MEAN CORPUSCULAR VOLUME 90 fL (80-96); MONOCYTES # (AUTO) 0.6 K/uL (0.1-1.30); MONOCYTES % (AUTO) 2.6 % (2.0-12.0); NEUTROPHILS # (AUTO) 21.7 K/uL (1.8-8.9); NEUTROPHILS % (AUTO) 91.7 % (43.0-81.0); PLATELET COUNT (AUTO) 113 K/uL (150-450); RED BLOOD CELL COUNT(AUTO) 2.98 MIL/uL (4.5-6.0); RED CELL DISTRIBUTION WIDTH 15.3 % (11.5-15.0); WHITE BLOOD COUNT (AUTO) 23.7 K/uL (4.3-11.0)
[2023-05-30 06:01] LABS: ALANINE AMINOTRANSFERASE 14 U/L (12-78); ALKALINE PHOSPHATASE 118 U/L (46-116); ASPARTATE AMINOTRANSFERASE 26 U/L (15-37); BILIRUBIN,TOTAL 0.3 mg/dL (0.2-1.0); CALCIUM, SERUM 9.3 mg/dL (8.5-10.1); CARBON DIOXIDE 26 mmol/L (21-32); CHLORIDE 105 mmol/L (98-107); CREATININE 3.1 mg/dL (0.6-1.3); GLUCOSE 175 mg/dL (74-106); MAGNESIUM 1.9 mg/dL (1.8-2.4); PHOSPHORUS 2.5 mg/dL (2.5-4.9); POTASSIUM 3.3 mmol/L (3.5-5.1); SODIUM SERUM 139 mmol/L (136-145); TOTAL PROTEIN, SERUM 5.4 g/dL (6.4-8.2); UREA NITROGEN, BLOOD 34 mg/dL (7-18); VANCOMYCIN,TROUGH 17 ug/ml (10-20)
[2023-05-30 06:03] LABS: ALBUMIN 0.9 g/dL (3.4-5.0)
[2023-05-30] MEDS: MEMANTINE HCL 5 MG TABLET PO SCH (08:16)
[2023-05-30] MEDS: FOLIC ACID 1 MG TABLET PO SCH (08:16)
[2023-05-30] MEDS: CYANOCOBALAMIN 500 MCG TABLET PO SCH (08:17)
[2023-05-30] MEDS: PANTOPRAZOLE 40 MG TABLET.DR PO SCH (08:17)
[2023-05-30] MEDS: SENNOSIDES 8.6 MG TABLET PO SCH (08:23)
[2023-05-30] MEDS: AMLODIPINE BESYLATE 2.5 MG TABLET PO SCH (08:23)
[2023-05-30] MEDS: NOREPINEPHRINE 8 MG in IV NS 0.9% 242 ML IV PRN (08:29)
[2023-05-30 09:45] LABS: ANISOCYTOSIS 1+; BAND % (MANUAL) 2 % (0.0-5.0); EOSINOPHILS % (MANUAL) 1 % (0-4); LYMPHOCYTES % (MANUAL) 4 % (16-48); MONOCYTES % (MANUAL) 2 % (0-11.0); NEUTROPHILS % (MANUAL) 91 (42-76); PLATELET ESTIMATE DECREASED
[2023-05-30] MEDS: MEROPENEM 500 MG in IV NS 0.9% 50 ML IV SCH ×2 (11:01→21:15)
[2023-05-30] MEDS: VANCOMYCIN 500 MG in IV D5W 100 ML IV PRN (15:16)
[2023-05-30 18:11] LABS: D-DIMER 3.82 mg/L(FEU (0.17-0.50); INR 1.77 (0.91-1.10); PARTIAL THROMBOPLASTIN TIME 55.4 SEC (24.3-34.3); PROTHROMBIN TIME 18.1 SECS (9.2-11.1)
[2023-05-30] MEDS: Sodium Bicarbonate 100 MEQ in IV D5W 1,000 ML IV SCH (19:24)
[2023-05-30] MEDS: DOCUSATE SODIUM LIQ 100 MG/10 ML UDC GT SCH (21:15)
[2023-05-30] MEDS: MIRTAZAPINE 15 MG TABLET PO SCH (21:15)
[2023-05-30] MEDS: ENOXAPARIN SODIUM 30 MG/0.3 ML DISP.SYRIN SQ SCH (21:19)
[2023-05-31] VITALS (69 sets, daily range): BP systolic 93–138; BP diastolic 44–65; TEMP 97.1–97.6; O2SAT 95–100
[2023-05-31] MEDS: INSULIN REGULAR, HUMAN 100 UNIT/ML 3 ML VIAL SQ PRN ×2 (00:40→06:22)
[2023-05-31] MEDS: BLOOD SUGAR DIAGNOSTIC 1 EACH STRIP IN SCH ×4 (00:40→18:12)
[2023-05-31] MEDS: PROPOFOL 100 ML IV PRN ×2 (00:44→06:25)
[2023-05-31 06:06] LABS: BASOPHILS % (AUTO) 0.1 % (0.0-2.0); EOSINOPHILS # (AUTO) 0.2 K/uL (0.0-0.7); EOSINOPHILS % (AUTO) 0.9 % (0.0-6.0); HEMATOCRIT 25 % (39-51); HEMOGLOBIN 8.3 g/dL (13.5-17.5); LYMPHOCYTES # (AUTO) 1.2 K/uL (0.8-4.8); LYMPHOCYTES % (AUTO) 6.5 % (20.0-44.0); MEAN CORPUSCULAR HEMOGLOBIN 30 PG (26.0-33.0); MEAN CORPUSCULAR HGB CONC 33 g/dl (31.0-36.0); MEAN CORPUSCULAR VOLUME 90 fL (80-96); MONOCYTES # (AUTO) 0.5 K/uL (0.1-1.30); MONOCYTES % (AUTO) 2.8 % (2.0-12.0); NEUTROPHILS # (AUTO) 16.8 K/uL (1.8-8.9); NEUTROPHILS % (AUTO) 89.7 % (43.0-81.0); PLATELET COUNT (AUTO) 93 K/uL (150-450); RED CELL DISTRIBUTION WIDTH 15.5 % (11.5-15.0); WHITE BLOOD COUNT (AUTO) 18.7 K/uL (4.3-11.0)
[2023-05-31 06:21] LABS: CALCIUM, SERUM 8.8 mg/dL (8.5-10.1); CARBON DIOXIDE 27 mmol/L (21-32); CHLORIDE 104 mmol/L (98-107); CREATININE 2.3 mg/dL (0.6-1.3); GLUCOSE 152 mg/dL (74-106); POTASSIUM 4.7 mmol/L (3.5-5.1); SODIUM SERUM 136 mmol/L (136-145); UREA NITROGEN, BLOOD 22 mg/dL (7-18)
[2023-05-31] MEDS: NOREPINEPHRINE 8 MG in IV NS 0.9% 242 ML IV PRN (07:24)
[2023-05-31] MEDS: MEMANTINE HCL 5 MG TABLET PO SCH (08:08)
[2023-05-31] MEDS: FOLIC ACID 1 MG TABLET PO SCH (08:08)
[2023-05-31] MEDS: SENNOSIDES 8.6 MG TABLET PO SCH (08:09)
[2023-05-31] MEDS: CYANOCOBALAMIN 500 MCG TABLET PO SCH (08:09)
[2023-05-31] MEDS: MEROPENEM 500 MG in IV NS 0.9% 50 ML IV SCH ×2 (08:10→21:53)
[2023-05-31] MEDS: PANTOPRAZOLE 40 MG TABLET.DR PO SCH (08:10)
[2023-05-31] MEDS: AMLODIPINE BESYLATE 2.5 MG TABLET PO SCH (08:10)
[2023-05-31 09:47] LABS: ABG BASE EXCESS -4.8 mmol/L; ABG OXYGEN SATURATION 92.2 % (92.0-98.5); ABG PCO2 22.9 mmHg (35.0-45.0); ABG PH 7.494 (7.350-7.450); ABG PO2 61.6 mmHg (75.0-100.0); ABG TOTAL HEMOGLOBIN 9.6 G/dL (13.5-18.0); AaDO2 269.1 mmHg; COHb 0.3 % (0.5-1.5); MetHb 0.3 % (0.0-1.5); O2Hb 91.6 % (94.0-97.0); PEEP,BG 5 cm H2O; SITE, ABG Right Radial; VT, ABG 500 mL
[2023-05-31 09:47] LABS: ABG BASE EXCESS 2.2 mmol/L; ABG OXYGEN SATURATION 94.4 % (92.0-98.5); ABG PCO2 28.9 mmHg (35.0-45.0); ABG PH 7.541 (7.350-7.450); ABG PO2 70.4 mmHg (75.0-100.0); ABG TOTAL HEMOGLOBIN 10.4 G/dL (13.5-18.0); AaDO2 253.6 mmHg; COHb 0.3 % (0.5-1.5); MetHb 0.3 % (0.0-1.5); O2Hb 93.8 % (94.0-97.0); SITE, ABG Right Radial
[2023-05-31 10:05] LABS: ABG BASE EXCESS 3.6 mmol/L; ABG OXYGEN SATURATION 95.2 % (92.0-98.5); ABG PCO2 33.5 mmHg (35.0-45.0); ABG PH 7.513 (7.350-7.450); ABG TOTAL HEMOGLOBIN 11.5 G/dL (13.5-18.0); AaDO2 169.7 mmHg; COHb 0.3 % (0.5-1.5); MetHb 0.1 % (0.0-1.5); O2Hb 94.8 % (94.0-97.0); SITE, ABG Right Radial
[2023-05-31 10:12] LABS: D-DIMER 2.39 mg/L(FEU (0.17-0.50); INR 1.1 (0.91-1.10); PARTIAL THROMBOPLASTIN TIME 34.5 SEC (24.3-34.3); PROTHROMBIN TIME 11.6 SECS (9.2-11.1)
[2023-05-31] MEDS: Sodium Bicarbonate 100 MEQ in IV D5W 1,000 ML IV SCH (13:24)
[2023-05-31 14:10] LABS: EOSINOPHILS % (MANUAL) 2 % (0-4); LYMPHOCYTES % (MANUAL) 6 % (16-48); MONOCYTES % (MANUAL) 3 % (0-11.0); NEUTROPHILS % (MANUAL) 89 (42-76); PLATELET ESTIMATE DECREASED
[2023-05-31 14:11] LABS: ANISOCYTOSIS 1+
[2023-05-31] MEDS ORDERED: IV D5/ 0.9% NACL 1,000 ML IV PRN (15:30)
[2023-05-31] MEDS: GLUCERNA 1.2 1,000 ML BOTTLE NG PRN (19:47)
[2023-05-31] MEDS: DOCUSATE SODIUM LIQ 100 MG/10 ML UDC GT SCH (21:53)
[2023-05-31] MEDS: MIRTAZAPINE 15 MG TABLET PO SCH (21:53)
[2023-05-31] MEDS: ENOXAPARIN SODIUM 30 MG/0.3 ML DISP.SYRIN SQ SCH (21:55)
[2023-06-01] VITALS (49 sets, daily range): BP systolic 86–125; BP diastolic 39–55; TEMP 93.6–97.4; O2SAT 89–100
[2023-06-01] MEDS: BLOOD SUGAR DIAGNOSTIC 1 EACH STRIP IN SCH ×5 (00:52→23:53)
[2023-06-01] MEDS: INSULIN REGULAR, HUMAN 100 UNIT/ML 3 ML VIAL SQ PRN ×2 (00:53→06:16)
[2023-06-01 05:59] LABS: BASOPHILS % (AUTO) 0.1 % (0.0-2.0); EOSINOPHILS # (AUTO) 0.2 K/uL (0.0-0.7); HEMATOCRIT 25 % (39-51); HEMOGLOBIN 8.1 g/dL (13.5-17.5); LYMPHOCYTES # (AUTO) 0.8 K/uL (0.8-4.8); LYMPHOCYTES % (AUTO) 5.3 % (20.0-44.0); MEAN CORPUSCULAR HEMOGLOBIN 30 PG (26.0-33.0); MEAN CORPUSCULAR HGB CONC 33 g/dl (31.0-36.0); MEAN CORPUSCULAR VOLUME 91 fL (80-96); MONOCYTES # (AUTO) 0.3 K/uL (0.1-1.30); NEUTROPHILS # (AUTO) 13.7 K/uL (1.8-8.9); NEUTROPHILS % (AUTO) 91.6 % (43.0-81.0); PLATELET COUNT (AUTO) 73 K/uL (150-450); RED CELL DISTRIBUTION WIDTH 15.5 % (11.5-15.0)
[2023-06-01 06:05] LABS: CALCIUM, SERUM 8.9 mg/dL (8.5-10.1); CARBON DIOXIDE 29 mmol/L (21-32); CHLORIDE 103 mmol/L (98-107); GLUCOSE 140 mg/dL (74-106); POTASSIUM 3.4 mmol/L (3.5-5.1); SODIUM SERUM 137 mmol/L (136-145); UREA NITROGEN, BLOOD 29 mg/dL (7-18)
[2023-06-01 06:07] LABS: D-DIMER 2.88 mg/L(FEU (0.17-0.50); INR 1.06 (0.91-1.10); PARTIAL THROMBOPLASTIN TIME 37.9 SEC (24.3-34.3); PROTHROMBIN TIME 11.2 SECS (9.2-11.1)
[2023-06-01 08:01] LABS: ABG BASE EXCESS 1.4 mmol/L; ABG OXYGEN SATURATION 94.7 % (92.0-98.5); ABG PCO2 36.4 mmHg (35.0-45.0); ABG PH 7.458 (7.350-7.450); ABG PO2 75.8 mmHg (75.0-100.0); ABG TOTAL HEMOGLOBIN 9.2 G/dL (13.5-18.0); AaDO2 167.5 mmHg; COHb 0.3 % (0.5-1.5); MetHb 0.3 % (0.0-1.5); O2Hb 94.1 % (94.0-97.0); SITE, ABG Right Radial
[2023-06-01] MEDS: MEROPENEM 500 MG in IV NS 0.9% 50 ML IV SCH ×2 (08:15→21:00)
[2023-06-01] MEDS: PANTOPRAZOLE 40 MG TABLET.DR PO SCH (08:16)
[2023-06-01] MEDS: CYANOCOBALAMIN 500 MCG TABLET PO SCH (08:16)
[2023-06-01] MEDS: MEMANTINE HCL 5 MG TABLET PO SCH (08:16)
[2023-06-01] MEDS: SENNOSIDES 8.6 MG TABLET PO SCH (08:16)
[2023-06-01] MEDS: FOLIC ACID 1 MG TABLET PO SCH (08:16)
[2023-06-01] MEDS: AMLODIPINE BESYLATE 2.5 MG TABLET PO SCH (09:00)
[2023-06-01 10:27] LABS: ANISOCYTOSIS 1+; BAND % (MANUAL) 1 % (0.0-5.0); EOSINOPHILS % (MANUAL) 1 % (0-4); LYMPHOCYTES % (MANUAL) 7 % (16-48); MONOCYTES % (MANUAL) 5 % (0-11.0); NEUTROPHILS % (MANUAL) 86 (42-76); PLATELET ESTIMATE DECREASED
[2023-06-01 13:07] LABS: HEPATITIS B SURFACE AB Non Reactive (.)
[2023-06-01] MEDS: VANCOMYCIN 500 MG in IV D5W 100 ML IV PRN (19:00)
[2023-06-01] MEDS: GLUCERNA 1.2 1,000 ML BOTTLE NG PRN (21:00)
[2023-06-01] MEDS: DOCUSATE SODIUM LIQ 100 MG/10 ML UDC GT SCH (21:02)
[2023-06-01] MEDS: MIRTAZAPINE 15 MG TABLET PO SCH (21:02)
[2023-06-02] VITALS (77 sets, daily range): BP systolic 80–138; BP diastolic 38–61; TEMP 98.3–100.5; O2SAT 92–100
[2023-06-02] MEDS ORDERED: NOREPINEPHRINE 8MG/250ML RTU 250 ML IV ONE (00:46)
[2023-06-02] MEDS: NOREPINEPHRINE 8 MG in IV NS 0.9% 242 ML IV PRN (00:50)
[2023-06-02 04:56] LABS: BASOPHILS % (AUTO) 0.1 % (0.0-2.0); EOSINOPHILS # (AUTO) 0.1 K/uL (0.0-0.7); EOSINOPHILS % (AUTO) 0.6 % (0.0-6.0); HEMATOCRIT 25 % (39-51); HEMOGLOBIN 8.2 g/dL (13.5-17.5); LYMPHOCYTES # (AUTO) 1.4 K/uL (0.8-4.8); LYMPHOCYTES % (AUTO) 6.9 % (20.0-44.0); MEAN CORPUSCULAR HEMOGLOBIN 30 PG (26.0-33.0); MEAN CORPUSCULAR HGB CONC 33 g/dl (31.0-36.0); MEAN CORPUSCULAR VOLUME 91 fL (80-96); MONOCYTES # (AUTO) 0.6 K/uL (0.1-1.30); NEUTROPHILS # (AUTO) 18.4 K/uL (1.8-8.9); NEUTROPHILS % (AUTO) 89.4 % (43.0-81.0); PLATELET COUNT (AUTO) 91 K/uL (150-450); RED BLOOD CELL COUNT(AUTO) 2.75 MIL/uL (4.5-6.0); RED CELL DISTRIBUTION WIDTH 15.1 % (11.5-15.0); WHITE BLOOD COUNT (AUTO) 20.6 K/uL (4.3-11.0)
[2023-06-02 05:03] LABS: CALCIUM, SERUM 8.2 mg/dL (8.5-10.1); CARBON DIOXIDE 29 mmol/L (21-32); CHLORIDE 101 mmol/L (98-107); CREATININE 2.4 mg/dL (0.6-1.3); GLUCOSE 158 mg/dL (74-106); MAGNESIUM 1.9 mg/dL (1.8-2.4); PHOSPHORUS 2.6 mg/dL (2.5-4.9); POTASSIUM 3.2 mmol/L (3.5-5.1); SODIUM SERUM 137 mmol/L (136-145); UREA NITROGEN, BLOOD 22 mg/dL (7-18)
[2023-06-02 05:48] LABS: ANISOCYTOSIS 1+; BAND % (MANUAL) 2 % (0.0-5.0); LYMPHOCYTES % (MANUAL) 4 % (16-48); METAMYELOCYTES % 1 % (0-0); MONOCYTES % (MANUAL) 1 % (0-11.0); MYELOCYTES % 1 % (0-0); NEUTROPHILS % (MANUAL) 90 (42-76); PLATELET ESTIMATE DECREASED; PROMYELOCYTES % 1 % (0-0)
[2023-06-02] MEDS: INSULIN REGULAR, HUMAN 100 UNIT/ML 3 ML VIAL SQ PRN ×3 (06:10→23:44)
[2023-06-02] MEDS: BLOOD SUGAR DIAGNOSTIC 1 EACH STRIP IN SCH ×4 (06:10→23:29)
[2023-06-02] MEDS: PANTOPRAZOLE 40 MG TABLET.DR PO SCH (07:36)
[2023-06-02] MEDS: MEMANTINE HCL 5 MG TABLET PO SCH (08:04)
[2023-06-02] MEDS: SENNOSIDES 8.6 MG TABLET PO SCH (08:04)
[2023-06-02] MEDS: MEROPENEM 500 MG in IV NS 0.9% 50 ML IV SCH ×2 (08:04→21:02)
[2023-06-02] MEDS: FOLIC ACID 1 MG TABLET PO SCH (08:04)
[2023-06-02] MEDS: CYANOCOBALAMIN 500 MCG TABLET PO SCH (08:04)
[2023-06-02] MEDS: AMLODIPINE BESYLATE 2.5 MG TABLET PO SCH (08:22)
[2023-06-02] MEDS: POTASSIUM CL. PREMIX PERIPHER. 50 ML IV SCH ×3 (11:47→13:47)
[2023-06-02] MEDS: GLUCERNA 1.2 1,000 ML BOTTLE NG PRN (17:42)
[2023-06-02] MEDS: DOCUSATE SODIUM LIQ 100 MG/10 ML UDC GT SCH (21:02)
[2023-06-02] MEDS: MIRTAZAPINE 15 MG TABLET PO SCH (21:02)
[2023-06-03] VITALS (33 sets, daily range): BP systolic 100–146; BP diastolic 47–67; TEMP 96.6–98.3; O2SAT 93–100
[2023-06-03 04:12] LABS: BASOPHILS % (AUTO) 0.3 % (0.0-2.0); EOSINOPHILS # (AUTO) 0.2 K/uL (0.0-0.7); EOSINOPHILS % (AUTO) 1.2 % (0.0-6.0); HEMATOCRIT 23 % (39-51); HEMOGLOBIN 7.4 g/dL (13.5-17.5); LYMPHOCYTES # (AUTO) 1.1 K/uL (0.8-4.8); LYMPHOCYTES % (AUTO) 7.6 % (20.0-44.0); MEAN CORPUSCULAR HEMOGLOBIN 30 PG (26.0-33.0); MEAN CORPUSCULAR HGB CONC 32 g/dl (31.0-36.0); MEAN CORPUSCULAR VOLUME 92 fL (80-96); MONOCYTES # (AUTO) 0.5 K/uL (0.1-1.30); MONOCYTES % (AUTO) 3.7 % (2.0-12.0); NEUTROPHILS # (AUTO) 12.1 K/uL (1.8-8.9); NEUTROPHILS % (AUTO) 87.2 % (43.0-81.0); PLATELET COUNT (AUTO) 73 K/uL (150-450); RED BLOOD CELL COUNT(AUTO) 2.52 MIL/uL (4.5-6.0); RED CELL DISTRIBUTION WIDTH 14.9 % (11.5-15.0); WHITE BLOOD COUNT (AUTO) 13.9 K/uL (4.3-11.0)
[2023-06-03 04:29] LABS: CALCIUM, SERUM 8.3 mg/dL (8.5-10.1); CARBON DIOXIDE 31 mmol/L (21-32); CHLORIDE 102 mmol/L (98-107); CREATININE 3.1 mg/dL (0.6-1.3); GLUCOSE 142 mg/dL (74-106); POTASSIUM 4.2 mmol/L (3.5-5.1); SODIUM SERUM 137 mmol/L (136-145); UREA NITROGEN, BLOOD 32 mg/dL (7-18)
[2023-06-03 04:56] LABS: EOSINOPHILS % (MANUAL) 1 % (0-4); LYMPHOCYTES % (MANUAL) 7 % (16-48); MONOCYTES % (MANUAL) 4 % (0-11.0); NEUTROPHILS % (MANUAL) 88 (42-76); PLATELET ESTIMATE DECREASED
[2023-06-03] MEDS: BLOOD SUGAR DIAGNOSTIC 1 EACH STRIP IN SCH ×4 (06:56→23:52)
[2023-06-03] MEDS: INSULIN REGULAR, HUMAN 100 UNIT/ML 3 ML VIAL SQ PRN (06:57)
[2023-06-03] MEDS: MEROPENEM 500 MG in IV NS 0.9% 50 ML IV SCH ×2 (08:18→21:23)
[2023-06-03] MEDS: SENNOSIDES 8.6 MG TABLET PO SCH (08:19)
[2023-06-03] MEDS: FOLIC ACID 1 MG TABLET PO SCH (08:19)
[2023-06-03] MEDS: PANTOPRAZOLE 40 MG TABLET.DR PO SCH (08:19)
[2023-06-03] MEDS: MEMANTINE HCL 5 MG TABLET PO SCH (08:19)
[2023-06-03] MEDS: AMLODIPINE BESYLATE 2.5 MG TABLET PO SCH (08:19)
[2023-06-03] MEDS: CYANOCOBALAMIN 500 MCG TABLET PO SCH (08:20)
[2023-06-03] MEDS ORDERED: DOSE PER PHARMACY MICAFUNGIN 1 EA XX PRN (13:00)
[2023-06-03] MEDS: FLUCONAZOLE IN NS,PREMIX 200 MG in PREMIX 1 EA IV SCH ×2 (16:17)
[2023-06-03] MEDS: DOCUSATE SODIUM LIQ 100 MG/10 ML UDC GT SCH (21:23)
[2023-06-03] MEDS: MIRTAZAPINE 15 MG TABLET PO SCH (21:23)
[2023-06-04] VITALS (29 sets, daily range): BP systolic 87–143; BP diastolic 44–91; TEMP 96.1–98.9; O2SAT 96–100
[2023-06-04 05:04] LABS: BASOPHILS # (AUTO) 0.1 K/uL (0.0-0.2); BASOPHILS % (AUTO) 0.5 % (0.0-2.0); EOSINOPHILS # (AUTO) 0.2 K/uL (0.0-0.7); EOSINOPHILS % (AUTO) 1.1 % (0.0-6.0); HEMATOCRIT 23 % (39-51); HEMOGLOBIN 7.3 g/dL (13.5-17.5); LYMPHOCYTES # (AUTO) 0.9 K/uL (0.8-4.8); LYMPHOCYTES % (AUTO) 5.7 % (20.0-44.0); MEAN CORPUSCULAR HEMOGLOBIN 29 PG (26.0-33.0); MEAN CORPUSCULAR HGB CONC 32 g/dl (31.0-36.0); MEAN CORPUSCULAR VOLUME 92 fL (80-96); MONOCYTES # (AUTO) 0.6 K/uL (0.1-1.30); NEUTROPHILS # (AUTO) 13.7 K/uL (1.8-8.9); NEUTROPHILS % (AUTO) 88.7 % (43.0-81.0); PLATELET COUNT (AUTO) 79 K/uL (150-450); RED BLOOD CELL COUNT(AUTO) 2.49 MIL/uL (4.5-6.0); RED CELL DISTRIBUTION WIDTH 14.9 % (11.5-15.0); WHITE BLOOD COUNT (AUTO) 15.4 K/uL (4.3-11.0)
[2023-06-04 05:19] LABS: CALCIUM, SERUM 8.8 mg/dL (8.5-10.1); CARBON DIOXIDE 30 mmol/L (21-32); CHLORIDE 101 mmol/L (98-107); CREATININE 3.6 mg/dL (0.6-1.3); GLUCOSE 133 mg/dL (74-106); POTASSIUM 4.3 mmol/L (3.5-5.1); SODIUM SERUM 137 mmol/L (136-145); UREA NITROGEN, BLOOD 42 mg/dL (7-18)
[2023-06-04] MEDS: BLOOD SUGAR DIAGNOSTIC 1 EACH STRIP IN SCH ×3 (05:36→18:04)
[2023-06-04] MEDS: FOLIC ACID 1 MG TABLET PO SCH (08:11)
[2023-06-04] MEDS: CYANOCOBALAMIN 500 MCG TABLET PO SCH (08:11)
[2023-06-04] MEDS: PANTOPRAZOLE 40 MG TABLET.DR PO SCH (08:11)
[2023-06-04] MEDS: MEMANTINE HCL 5 MG TABLET PO SCH (08:11)
[2023-06-04] MEDS: SENNOSIDES 8.6 MG TABLET PO SCH (08:11)
[2023-06-04] MEDS: AMLODIPINE BESYLATE 2.5 MG TABLET PO SCH (08:12)
[2023-06-04] MEDS: MEROPENEM 500 MG in IV NS 0.9% 50 ML IV SCH (09:40)
[2023-06-04 11:02] LABS: EOSINOPHILS % (MANUAL) 2 % (0-4); LYMPHOCYTES % (MANUAL) 5 % (16-48); MONOCYTES % (MANUAL) 2 % (0-11.0); NEUTROPHILS % (MANUAL) 91 (42-76); PLATELET ESTIMATE DECREASED
[2023-06-04 11:03] LABS: ANISOCYTOSIS 1+
[2023-06-04] MEDS: INSULIN REGULAR, HUMAN 100 UNIT/ML 3 ML VIAL SQ PRN ×2 (11:50→18:12)
[2023-06-04] MEDS: GLUCERNA 1.2 1,000 ML BOTTLE NG PRN (13:27)
[2023-06-04] MEDS: FLUCONAZOLE IN NS,PREMIX 200 MG in PREMIX 1 EA IV SCH ×2 (14:53)
[2023-06-04 15:36] LABS: ABG BASE EXCESS 7.7 mmol/L; ABG OXYGEN SATURATION 95.1 % (92.0-98.5); ABG PCO2 32.8 mmHg (35.0-45.0); ABG PH 7.579 (7.350-7.450); ABG PO2 70.8 mmHg (75.0-100.0); AaDO2 176.7 mmHg; MetHb 0.1 % (0.0-1.5); SITE, ABG Left Radial
[2023-06-04] MEDS: NEPRO 1,000 ML BOTTLE GT PRN (18:04)
[2023-06-04] MEDS: DOCUSATE SODIUM LIQ 100 MG/10 ML UDC GT SCH (21:00)
[2023-06-04] MEDS ORDERED: MEROPENEM 500 MG in IV NS 0.9% 50 ML IV ONE (21:00)
[2023-06-04] MEDS: MIRTAZAPINE 15 MG TABLET PO SCH (22:35)
[2023-06-05] VITALS (38 sets, daily range): BP systolic 92–162; BP diastolic 44–69; TEMP 97.6–98.9; O2SAT 94–100
[2023-06-05] MEDS: BLOOD SUGAR DIAGNOSTIC 1 EACH STRIP IN SCH ×4 (00:40→18:42)
[2023-06-05] MEDS: INSULIN REGULAR, HUMAN 100 UNIT/ML 3 ML VIAL SQ PRN ×4 (00:42→18:43)
[2023-06-05 05:34] LABS: ALANINE AMINOTRANSFERASE 17 U/L (12-78); ALKALINE PHOSPHATASE 206 U/L (46-116); ASPARTATE AMINOTRANSFERASE 38 U/L (15-37); BILIRUBIN,TOTAL 0.2 mg/dL (0.2-1.0); CALCIUM, SERUM 8.2 mg/dL (8.5-10.1); CARBON DIOXIDE 31 mmol/L (21-32); CHLORIDE 103 mmol/L (98-107); CREATININE 2.6 mg/dL (0.6-1.3); GLUCOSE 169 mg/dL (74-106); MAGNESIUM 1.9 mg/dL (1.8-2.4); PHOSPHORUS 3.4 mg/dL (2.5-4.9); POTASSIUM 3.8 mmol/L (3.5-5.1); SODIUM SERUM 137 mmol/L (136-145); TOTAL PROTEIN, SERUM 5.3 g/dL (6.4-8.2); UREA NITROGEN, BLOOD 32 mg/dL (7-18)
[2023-06-05 05:41] LABS: ALBUMIN 0.7 g/dL (3.4-5.0)
[2023-06-05] MEDS: PANTOPRAZOLE 40 MG TABLET.DR PO SCH (07:43)
[2023-06-05] MEDS: FOLIC ACID 1 MG TABLET PO SCH (09:17)
[2023-06-05] MEDS: MEMANTINE HCL 5 MG TABLET PO SCH (09:17)
[2023-06-05] MEDS: SENNOSIDES 8.6 MG TABLET PO SCH (09:17)
[2023-06-05] MEDS: CYANOCOBALAMIN 500 MCG TABLET PO SCH (09:17)
[2023-06-05] MEDS: AMLODIPINE BESYLATE 2.5 MG TABLET PO SCH (09:18)
[2023-06-05 12:32] LABS: BASOPHILS # (AUTO) 0.1 K/uL (0.0-0.2); BASOPHILS % (AUTO) 0.5 % (0.0-2.0); EOSINOPHILS # (AUTO) 0.2 K/uL (0.0-0.7); EOSINOPHILS % (AUTO) 1.3 % (0.0-6.0); LYMPHOCYTES # (AUTO) 1.3 K/uL (0.8-4.8); LYMPHOCYTES % (AUTO) 9.8 % (20.0-44.0); MEAN CORPUSCULAR HEMOGLOBIN 30 PG (26.0-33.0); MEAN CORPUSCULAR HGB CONC 32 g/dl (31.0-36.0); MEAN CORPUSCULAR VOLUME 92 fL (80-96); MONOCYTES # (AUTO) 0.8 K/uL (0.1-1.30); MONOCYTES % (AUTO) 6.3 % (2.0-12.0); NEUTROPHILS # (AUTO) 10.5 K/uL (1.8-8.9); NEUTROPHILS % (AUTO) 82.1 % (43.0-81.0); PLATELET COUNT (AUTO) 95 K/uL (150-450); RED BLOOD CELL COUNT(AUTO) 2.22 MIL/uL (4.5-6.0); RED CELL DISTRIBUTION WIDTH 14.7 % (11.5-15.0); WHITE BLOOD COUNT (AUTO) 12.8 K/uL (4.3-11.0)
[2023-06-05 12:41] LABS: HEMATOCRIT 20 % (39-51); HEMOGLOBIN 6.6 g/dL (13.5-17.5)
[2023-06-05] MEDS: FLUCONAZOLE IN NS,PREMIX 200 MG in PREMIX 1 EA IV SCH ×2 (14:49)
[2023-06-05] MEDS: NEPRO 1,000 ML BOTTLE GT PRN (16:42)
[2023-06-05 17:06] LABS: NEUTROPHILS % (MANUAL) 86 (42-76)
[2023-06-05 17:07] LABS: BAND % (MANUAL) 3 % (0.0-5.0); EOSINOPHILS % (MANUAL) 1 % (0-4); LYMPHOCYTES % (MANUAL) 6 % (16-48); MONOCYTES % (MANUAL) 4 % (0-11.0); PLATELET ESTIMATE DECREASED
[2023-06-05] MEDS: MEROPENEM 1 G in IV NS 0.9% 100 ML IV SCH (21:39)
[2023-06-05] MEDS: DOCUSATE SODIUM LIQ 100 MG/10 ML UDC GT SCH (21:39)
[2023-06-05] MEDS: MIRTAZAPINE 15 MG TABLET PO SCH (21:40)
[2023-06-06] VITALS (26 sets, daily range): BP systolic 106–169; BP diastolic 49–78; TEMP 97.6–98.2; O2SAT 96–100
[2023-06-06] MEDS: BLOOD SUGAR DIAGNOSTIC 1 EACH STRIP IN SCH ×4 (00:43→17:18)
[2023-06-06] MEDS: INSULIN REGULAR, HUMAN 100 UNIT/ML 3 ML VIAL SQ PRN ×3 (00:44→11:07)
[2023-06-06] MEDS: PANTOPRAZOLE 40 MG TABLET.DR PO SCH (07:45)
[2023-06-06] MEDS: CYANOCOBALAMIN 500 MCG TABLET PO SCH (08:16)
[2023-06-06] MEDS: FOLIC ACID 1 MG TABLET PO SCH (08:16)
[2023-06-06] MEDS: MEMANTINE HCL 5 MG TABLET PO SCH (08:17)
[2023-06-06] MEDS: SENNOSIDES 8.6 MG TABLET PO SCH (08:17)
[2023-06-06] MEDS: AMLODIPINE BESYLATE 2.5 MG TABLET PO SCH (08:17)
[2023-06-06] MEDS: NEPRO 1,000 ML BOTTLE GT PRN (11:09)
[2023-06-06 12:08] LABS: BASOPHILS # (AUTO) 0.1 K/uL (0.0-0.2); BASOPHILS % (AUTO) 0.4 % (0.0-2.0); EOSINOPHILS # (AUTO) 0.2 K/uL (0.0-0.7); EOSINOPHILS % (AUTO) 1.2 % (0.0-6.0); HEMATOCRIT 26 % (39-51); HEMOGLOBIN 8.3 g/dL (13.5-17.5); LYMPHOCYTES # (AUTO) 0.8 K/uL (0.8-4.8); LYMPHOCYTES % (AUTO) 4.6 % (20.0-44.0); MEAN CORPUSCULAR HEMOGLOBIN 30 PG (26.0-33.0); MEAN CORPUSCULAR HGB CONC 32 g/dl (31.0-36.0); MEAN CORPUSCULAR VOLUME 92 fL (80-96); MONOCYTES # (AUTO) 0.8 K/uL (0.1-1.30); MONOCYTES % (AUTO) 4.9 % (2.0-12.0); NEUTROPHILS # (AUTO) 14.9 K/uL (1.8-8.9); NEUTROPHILS % (AUTO) 88.9 % (43.0-81.0); PLATELET COUNT (AUTO) 106 K/uL (150-450); RED BLOOD CELL COUNT(AUTO) 2.81 MIL/uL (4.5-6.0); RED CELL DISTRIBUTION WIDTH 15.5 % (11.5-15.0); WHITE BLOOD COUNT (AUTO) 16.8 K/uL (4.3-11.0)
[2023-06-06] MEDS: FLUCONAZOLE IN NS,PREMIX 200 MG in PREMIX 1 EA IV SCH ×2 (13:00)
[2023-06-06 13:57] LABS: ABG BASE EXCESS 4.7 mmol/L; ABG PCO2 38.6 mmHg (35.0-45.0); ABG PH 7.485 (7.350-7.450); ABG PO2 110.4 mmHg (75.0-100.0); ABG TOTAL HEMOGLOBIN 9.1 G/dL (13.5-18.0); AaDO2 130.4 mmHg; COHb 0.2 % (0.5-1.5); O2Hb 97.8 % (94.0-97.0); SITE, ABG Right Radial
[2023-06-06] MEDS: MEROPENEM 1 G in IV NS 0.9% 100 ML IV SCH (20:46)
[2023-06-06] MEDS: MIRTAZAPINE 15 MG TABLET PO SCH (21:11)
[2023-06-06] MEDS: DOCUSATE SODIUM LIQ 100 MG/10 ML UDC GT SCH (21:11)
[2023-06-07] VITALS (21 sets, daily range): BP systolic 127–159; BP diastolic 61–85; TEMP 97.3–98; O2SAT 96–100
[2023-06-07] MEDS: BLOOD SUGAR DIAGNOSTIC 1 EACH STRIP IN SCH ×4 (00:08→18:20)
[2023-06-07 05:43] LABS: BASOPHILS # (AUTO) 0.1 K/uL (0.0-0.2); BASOPHILS % (AUTO) 0.4 % (0.0-2.0); EOSINOPHILS # (AUTO) 0.1 K/uL (0.0-0.7); EOSINOPHILS % (AUTO) 0.9 % (0.0-6.0); HEMATOCRIT 25 % (39-51); HEMOGLOBIN 7.9 g/dL (13.5-17.5); LYMPHOCYTES % (AUTO) 6.1 % (20.0-44.0); MEAN CORPUSCULAR HEMOGLOBIN 30 PG (26.0-33.0); MEAN CORPUSCULAR HGB CONC 32 g/dl (31.0-36.0); MEAN CORPUSCULAR VOLUME 92 fL (80-96); MONOCYTES # (AUTO) 0.9 K/uL (0.1-1.30); MONOCYTES % (AUTO) 5.6 % (2.0-12.0); NEUTROPHILS # (AUTO) 13.7 K/uL (1.8-8.9); PLATELET COUNT (AUTO) 126 K/uL (150-450); RED BLOOD CELL COUNT(AUTO) 2.67 MIL/uL (4.5-6.0); RED CELL DISTRIBUTION WIDTH 15.3 % (11.5-15.0); WHITE BLOOD COUNT (AUTO) 15.8 K/uL (4.3-11.0)
[2023-06-07 05:54] LABS: CARBON DIOXIDE 29 mmol/L (21-32); CHLORIDE 108 mmol/L (98-107); CREATININE 2.9 mg/dL (0.6-1.3); GLUCOSE 161 mg/dL (74-106); MAGNESIUM 2.2 mg/dL (1.8-2.4); PHOSPHORUS 3.6 mg/dL (2.5-4.9); POTASSIUM 3.7 mmol/L (3.5-5.1); SODIUM SERUM 142 mmol/L (136-145); UREA NITROGEN, BLOOD 34 mg/dL (7-18)
[2023-06-07 05:58] LABS: INR 1.03 (0.91-1.10); PARTIAL THROMBOPLASTIN TIME 28.6 SEC (24.3-34.3); PROTHROMBIN TIME 10.9 SECS (9.2-11.1)
[2023-06-07 05:59] LABS: D-DIMER 9.49 mg/L(FEU (0.17-0.50)
[2023-06-07] MEDS: INSULIN REGULAR, HUMAN 100 UNIT/ML 3 ML VIAL SQ PRN ×2 (06:09→14:13)
[2023-06-07 06:22] LABS: BAND % (MANUAL) 3 % (0.0-5.0); EOSINOPHILS % (MANUAL) 1 % (0-4); LYMPHOCYTES % (MANUAL) 7 % (16-48); MONOCYTES % (MANUAL) 5 % (0-11.0); NEUTROPHILS % (MANUAL) 84 (42-76); PLATELET ESTIMATE DECREASED
[2023-06-07] MEDS: AMLODIPINE BESYLATE 2.5 MG TABLET PO SCH (08:39)
[2023-06-07] MEDS: FOLIC ACID 1 MG TABLET PO SCH (08:39)
[2023-06-07] MEDS: SENNOSIDES 8.6 MG TABLET PO SCH (08:39)
[2023-06-07] MEDS: CYANOCOBALAMIN 500 MCG TABLET PO SCH (08:39)
[2023-06-07] MEDS: PANTOPRAZOLE 40 MG TABLET.DR PO SCH (08:39)
[2023-06-07] MEDS: MEMANTINE HCL 5 MG TABLET PO SCH (08:39)
[2023-06-07] MEDS: FLUCONAZOLE IN NS,PREMIX 200 MG in PREMIX 1 EA IV SCH ×2 (14:14)
[2023-06-07] MEDS: MEROPENEM 1 G in IV NS 0.9% 100 ML IV SCH (21:13)
[2023-06-07] MEDS: DOCUSATE SODIUM LIQ 100 MG/10 ML UDC GT SCH (22:56)
[2023-06-07] MEDS: MIRTAZAPINE 15 MG TABLET PO SCH (22:56)
[2023-06-08] VITALS: BP 161/76; TEMP 98.1; O2SAT 96
[2023-06-08] MEDS: BLOOD SUGAR DIAGNOSTIC 1 EACH STRIP IN SCH ×4 (00:52→17:54)
[2023-06-08] MEDS: CLONIDINE HCL 0.1 MG TABLET PO PRN (00:57)
[2023-06-08] MEDS: NEPRO 1,000 ML BOTTLE GT PRN (01:20)
[2023-06-08 04:00] VITALS: BP 137/69; TEMP 98.2; O2SAT 95
[2023-06-08 06:28] LABS: BASOPHILS # (AUTO) 0.1 K/uL (0.0-0.2); BASOPHILS % (AUTO) 0.7 % (0.0-2.0); EOSINOPHILS # (AUTO) 0.3 K/uL (0.0-0.7); HEMATOCRIT 25 % (39-51); HEMOGLOBIN 8.2 g/dL (13.5-17.5); LYMPHOCYTES # (AUTO) 1.2 K/uL (0.8-4.8); LYMPHOCYTES % (AUTO) 8.7 % (20.0-44.0); MEAN CORPUSCULAR HEMOGLOBIN 30 PG (26.0-33.0); MEAN CORPUSCULAR HGB CONC 33 g/dl (31.0-36.0); MEAN CORPUSCULAR VOLUME 92 fL (80-96); MONOCYTES # (AUTO) 0.7 K/uL (0.1-1.30); MONOCYTES % (AUTO) 5.6 % (2.0-12.0); NEUTROPHILS # (AUTO) 11.1 K/uL (1.8-8.9); PLATELET COUNT (AUTO) 165 K/uL (150-450); RED BLOOD CELL COUNT(AUTO) 2.72 MIL/uL (4.5-6.0); RED CELL DISTRIBUTION WIDTH 15.1 % (11.5-15.0); WHITE BLOOD COUNT (AUTO) 13.4 K/uL (4.3-11.0)
[2023-06-08 06:53] LABS: CALCIUM, SERUM 9.6 mg/dL (8.5-10.1); CARBON DIOXIDE 28 mmol/L (21-32); CHLORIDE 106 mmol/L (98-107); CREATININE 3.1 mg/dL (0.6-1.3); GLUCOSE 170 mg/dL (74-106); MAGNESIUM 2.3 mg/dL (1.8-2.4); PHOSPHORUS 4.1 mg/dL (2.5-4.9); POTASSIUM 3.7 mmol/L (3.5-5.1); SODIUM SERUM 141 mmol/L (136-145); UREA NITROGEN, BLOOD 47 mg/dL (7-18)
[2023-06-08 07:28] LABS: BAND % (MANUAL) 2 % (0.0-5.0); EOSINOPHILS % (MANUAL) 4 % (0-4); LYMPHOCYTES % (MANUAL) 6 % (16-48); MONOCYTES % (MANUAL) 2 % (0-11.0); NEUTROPHILS % (MANUAL) 86 (42-76); PLATELET ESTIMATE ADEQUATE
[2023-06-08 07:30] VITALS: BP 134/72; TEMP 98.2; O2SAT 100
[2023-06-08] MEDS: PANTOPRAZOLE 40 MG TABLET.DR PO SCH (08:14)
[2023-06-08] MEDS: INSULIN REGULAR, HUMAN 100 UNIT/ML 3 ML VIAL SQ PRN ×3 (08:28→17:57)
[2023-06-08] MEDS: CYANOCOBALAMIN 500 MCG TABLET PO SCH (09:08)
[2023-06-08] MEDS: SENNOSIDES 8.6 MG TABLET PO SCH (09:09)
[2023-06-08] MEDS: AMLODIPINE BESYLATE 2.5 MG TABLET PO SCH (09:09)
[2023-06-08] MEDS: FOLIC ACID 1 MG TABLET PO SCH (09:09)
[2023-06-08] MEDS: MEMANTINE HCL 5 MG TABLET PO SCH (09:09)
[2023-06-08] MEDS: DAKINS QUARTER STRENGTH (0.125%) 480 ML BOTTLE TOP SCH (12:55)
[2023-06-08] MEDS: FLUCONAZOLE IN NS,PREMIX 200 MG in PREMIX 1 EA IV SCH ×2 (15:01)
[2023-06-08 16:00] VITALS: BP 139/65; TEMP 98.2; O2SAT 99
[2023-06-08 20:00] VITALS: BP 139/52; TEMP 97.5; O2SAT 99
[2023-06-08 20:53] VITALS: BP 139/52; TEMP 94.5; O2SAT 99
[2023-06-08] MEDS: MEROPENEM 1 G in IV NS 0.9% 100 ML IV SCH (21:21)
[2023-06-08] MEDS: DOCUSATE SODIUM LIQ 100 MG/10 ML UDC GT SCH (22:00)
[2023-06-08] MEDS: MIRTAZAPINE 15 MG TABLET PO SCH (22:00)
[2023-06-09] VITALS (11 sets, daily range): BP systolic 100–159; BP diastolic 58–90; TEMP 95.2–98.7; O2SAT 97–100
[2023-06-09] MEDS: BLOOD SUGAR DIAGNOSTIC 1 EACH STRIP IN SCH ×4 (00:53→17:09)
[2023-06-09] MEDS: INSULIN REGULAR, HUMAN 100 UNIT/ML 3 ML VIAL SQ PRN ×3 (00:54→17:11)
[2023-06-09 06:07] LABS: HEPATITIS B CORE AB, IgM Negative (Negative); HEPATITIS B CORE AB, TOTAL Negative (Negative)
[2023-06-09 06:30] LABS: BASOPHILS # (AUTO) 0.1 K/uL (0.0-0.2); BASOPHILS % (AUTO) 0.6 % (0.0-2.0); EOSINOPHILS # (AUTO) 0.2 K/uL (0.0-0.7); EOSINOPHILS % (AUTO) 1.5 % (0.0-6.0); HEMATOCRIT 26 % (39-51); HEMOGLOBIN 8.2 g/dL (13.5-17.5); LYMPHOCYTES # (AUTO) 1.1 K/uL (0.8-4.8); LYMPHOCYTES % (AUTO) 8.7 % (20.0-44.0); MEAN CORPUSCULAR HEMOGLOBIN 29 PG (26.0-33.0); MEAN CORPUSCULAR HGB CONC 32 g/dl (31.0-36.0); MEAN CORPUSCULAR VOLUME 92 fL (80-96); MONOCYTES # (AUTO) 0.9 K/uL (0.1-1.30); MONOCYTES % (AUTO) 6.9 % (2.0-12.0); NEUTROPHILS # (AUTO) 10.4 K/uL (1.8-8.9); NEUTROPHILS % (AUTO) 82.3 % (43.0-81.0); PLATELET COUNT (AUTO) 193 K/uL (150-450); RED BLOOD CELL COUNT(AUTO) 2.81 MIL/uL (4.5-6.0); RED CELL DISTRIBUTION WIDTH 15.3 % (11.5-15.0); WHITE BLOOD COUNT (AUTO) 12.6 K/uL (4.3-11.0)
[2023-06-09 06:45] LABS: CALCIUM, SERUM 9.2 mg/dL (8.5-10.1); CARBON DIOXIDE 32 mmol/L (21-32); CHLORIDE 109 mmol/L (98-107); CREATININE 2.4 mg/dL (0.6-1.3); GLUCOSE 153 mg/dL (74-106); MAGNESIUM 2.1 mg/dL (1.8-2.4); PHOSPHORUS 2.6 mg/dL (2.5-4.9); POTASSIUM 3.4 mmol/L (3.5-5.1); SODIUM SERUM 145 mmol/L (136-145); UREA NITROGEN, BLOOD 31 mg/dL (7-18)
[2023-06-09] MEDS: PANTOPRAZOLE 40 MG TABLET.DR PO SCH (07:30)
[2023-06-09] MEDS: SENNOSIDES 8.6 MG TABLET PO SCH (09:00)
[2023-06-09] MEDS: CYANOCOBALAMIN 500 MCG TABLET PO SCH (09:00)
[2023-06-09] MEDS: MEMANTINE HCL 5 MG TABLET PO SCH (09:00)
[2023-06-09] MEDS: AMLODIPINE BESYLATE 2.5 MG TABLET PO SCH (09:00)
[2023-06-09] MEDS: FOLIC ACID 1 MG TABLET PO SCH (09:00)
[2023-06-09] MEDS: DAKINS QUARTER STRENGTH (0.125%) 480 ML BOTTLE TOP SCH (09:35)
[2023-06-09] MEDS ORDERED: IOHEXOL 0 ML IV ONE (09:49)
[2023-06-09] MEDS ORDERED: HEPARIN SODIUM, PORCINE 1,000 UNIT/ML VIAL ONE (09:49)
[2023-06-09] MEDS ORDERED: LIDOCAINE 1% INJ 50 ML MDV IJ ONE (09:49)
[2023-06-09] MEDS ORDERED: POTASSIUM CL. PREMIX PERIPHER. 50 ML IV SCH (10:30)
[2023-06-09] MEDS ORDERED: FENTANYL PF 100MCG/2ML AMPUL ONE (11:01)
[2023-06-09] MEDS: FLUCONAZOLE IN NS,PREMIX 200 MG in PREMIX 1 EA IV SCH ×2 (14:05)
[2023-06-09] MEDS: ANCEF 1 GM/50 ML D5W IV SCH ×4 (15:20→23:29)
[2023-06-09] MEDS: NEPRO 1,000 ML BOTTLE GT PRN (15:20)
[2023-06-09] MEDS: PROSOURCE / PROSTAT (PYXIS) 30 ML UDC GT SCH (16:03)
[2023-06-09] MEDS: MEROPENEM 1 G in IV NS 0.9% 100 ML IV SCH (21:31)
[2023-06-09] MEDS: MIRTAZAPINE 15 MG TABLET PO SCH (21:37)
[2023-06-09] MEDS: DOCUSATE SODIUM LIQ 100 MG/10 ML UDC GT SCH (21:37)
[2023-06-10] VITALS (7 sets, daily range): BP systolic 117–160; BP diastolic 60–84; TEMP 97–98.2; O2SAT 94–100
[2023-06-10] MEDS: BLOOD SUGAR DIAGNOSTIC 1 EACH STRIP IN SCH ×4 (01:33→17:57)
[2023-06-10] MEDS: INSULIN REGULAR, HUMAN 100 UNIT/ML 3 ML VIAL SQ PRN ×4 (01:34→18:01)
[2023-06-10 06:58] LABS: BASOPHILS # (AUTO) 0.1 K/uL (0.0-0.2); BASOPHILS % (AUTO) 0.7 % (0.0-2.0); EOSINOPHILS # (AUTO) 0.2 K/uL (0.0-0.7); EOSINOPHILS % (AUTO) 1.8 % (0.0-6.0); HEMATOCRIT 25 % (39-51); HEMOGLOBIN 8.2 g/dL (13.5-17.5); LYMPHOCYTES # (AUTO) 1.2 K/uL (0.8-4.8); LYMPHOCYTES % (AUTO) 9.8 % (20.0-44.0); MEAN CORPUSCULAR HEMOGLOBIN 30 PG (26.0-33.0); MEAN CORPUSCULAR HGB CONC 33 g/dl (31.0-36.0); MEAN CORPUSCULAR VOLUME 91 fL (80-96); MONOCYTES # (AUTO) 0.9 K/uL (0.1-1.30); MONOCYTES % (AUTO) 7.6 % (2.0-12.0); NEUTROPHILS # (AUTO) 9.6 K/uL (1.8-8.9); NEUTROPHILS % (AUTO) 80.1 % (43.0-81.0); PLATELET COUNT (AUTO) 219 K/uL (150-450); RED BLOOD CELL COUNT(AUTO) 2.73 MIL/uL (4.5-6.0); RED CELL DISTRIBUTION WIDTH 15.5 % (11.5-15.0)
[2023-06-10] MEDS: PANTOPRAZOLE 40 MG TABLET.DR PO SCH (07:30)
[2023-06-10 07:44] LABS: CALCIUM, SERUM 9.9 mg/dL (8.5-10.1); CARBON DIOXIDE 30 mmol/L (21-32); CHLORIDE 109 mmol/L (98-107); CREATININE 2.8 mg/dL (0.6-1.3); GLUCOSE 178 mg/dL (74-106); MAGNESIUM 2.2 mg/dL (1.8-2.4); PHOSPHORUS 3.2 mg/dL (2.5-4.9); POTASSIUM 3.4 mmol/L (3.5-5.1); SODIUM SERUM 145 mmol/L (136-145); UREA NITROGEN, BLOOD 43 mg/dL (7-18)
[2023-06-10] MEDS: FOLIC ACID 1 MG TABLET PO SCH (09:00)
[2023-06-10] MEDS: AMLODIPINE BESYLATE 2.5 MG TABLET PO SCH (09:00)
[2023-06-10] MEDS: CYANOCOBALAMIN 500 MCG TABLET PO SCH (09:00)
[2023-06-10] MEDS: SENNOSIDES 8.6 MG TABLET PO SCH (09:00)
[2023-06-10] MEDS: MEMANTINE HCL 5 MG TABLET PO SCH (09:00)
[2023-06-10] MEDS: PROSOURCE / PROSTAT (PYXIS) 30 ML UDC GT SCH ×2 (09:00→16:40)
[2023-06-10] MEDS: DAKINS QUARTER STRENGTH (0.125%) 480 ML BOTTLE TOP SCH (09:26)
[2023-06-10] MEDS: FLUCONAZOLE IN NS,PREMIX 200 MG in PREMIX 1 EA IV SCH ×2 (13:14)
[2023-06-10] MEDS: MIRTAZAPINE 15 MG TABLET PO SCH (20:33)
[2023-06-10] MEDS: DOCUSATE SODIUM LIQ 100 MG/10 ML UDC GT SCH (20:33)
[2023-06-10] MEDS: MEROPENEM 1 G in IV NS 0.9% 100 ML IV SCH (20:35)
[2023-06-11] VITALS (10 sets, daily range): BP systolic 116–144; BP diastolic 42–65; TEMP 97.3–98.6; O2SAT 95–99
[2023-06-11] MEDS: BLOOD SUGAR DIAGNOSTIC 1 EACH STRIP IN SCH ×5 (00:53→23:47)
[2023-06-11] MEDS: NEPRO 1,000 ML BOTTLE GT PRN ×2 (00:55→16:28)
[2023-06-11] MEDS: INSULIN REGULAR, HUMAN 100 UNIT/ML 3 ML VIAL SQ PRN ×2 (01:14→23:48)
[2023-06-11 07:03] LABS: BASOPHILS # (AUTO) 0.1 K/uL (0.0-0.2); BASOPHILS % (AUTO) 0.7 % (0.0-2.0); EOSINOPHILS # (AUTO) 0.2 K/uL (0.0-0.7); EOSINOPHILS % (AUTO) 1.9 % (0.0-6.0); HEMATOCRIT 24 % (39-51); HEMOGLOBIN 7.9 g/dL (13.5-17.5); LYMPHOCYTES # (AUTO) 1.3 K/uL (0.8-4.8); LYMPHOCYTES % (AUTO) 10.6 % (20.0-44.0); MEAN CORPUSCULAR HEMOGLOBIN 30 PG (26.0-33.0); MEAN CORPUSCULAR HGB CONC 32 g/dl (31.0-36.0); MEAN CORPUSCULAR VOLUME 92 fL (80-96); MONOCYTES # (AUTO) 0.8 K/uL (0.1-1.30); MONOCYTES % (AUTO) 6.8 % (2.0-12.0); NEUTROPHILS # (AUTO) 9.7 K/uL (1.8-8.9); PLATELET COUNT (AUTO) 257 K/uL (150-450); RED BLOOD CELL COUNT(AUTO) 2.66 MIL/uL (4.5-6.0); RED CELL DISTRIBUTION WIDTH 15.3 % (11.5-15.0); WHITE BLOOD COUNT (AUTO) 12.1 K/uL (4.3-11.0)
[2023-06-11 07:22] LABS: CALCIUM, SERUM 9.5 mg/dL (8.5-10.1); CARBON DIOXIDE 30 mmol/L (21-32); CHLORIDE 108 mmol/L (98-107); CREATININE 2.1 mg/dL (0.6-1.3); GLUCOSE 118 mg/dL (74-106); PHOSPHORUS 2.4 mg/dL (2.5-4.9); POTASSIUM 3.7 mmol/L (3.5-5.1); SODIUM SERUM 144 mmol/L (136-145); UREA NITROGEN, BLOOD 31 mg/dL (7-18)
[2023-06-11] MEDS: PANTOPRAZOLE 40 MG TABLET.DR PO SCH (07:30)
[2023-06-11] MEDS: FOLIC ACID 1 MG TABLET PO SCH (09:00)
[2023-06-11] MEDS: PROSOURCE / PROSTAT (PYXIS) 30 ML UDC GT SCH ×2 (09:00→17:41)
[2023-06-11] MEDS: MEMANTINE HCL 5 MG TABLET PO SCH (09:00)
[2023-06-11] MEDS: CYANOCOBALAMIN 500 MCG TABLET PO SCH (09:00)
[2023-06-11] MEDS: SENNOSIDES 8.6 MG TABLET PO SCH (09:00)
[2023-06-11] MEDS: AMLODIPINE BESYLATE 2.5 MG TABLET PO SCH (09:00)
[2023-06-11 09:01] LABS: BAND % (MANUAL) 3 % (0.0-5.0); EOSINOPHILS % (MANUAL) 3 % (0-4); LYMPHOCYTES % (MANUAL) 6 % (16-48); MONOCYTES % (MANUAL) 10 % (0-11.0); NEUTROPHILS % (MANUAL) 78 (42-76); PLATELET ESTIMATE ADEQUATE
[2023-06-11] MEDS: DAKINS QUARTER STRENGTH (0.125%) 480 ML BOTTLE TOP SCH (09:53)
[2023-06-11] MEDS ORDERED: MIDAZOLAM HCL 2 MG/2ML VIAL IV PRN (15:00)
[2023-06-11] MEDS ORDERED: FLUMAZENIL 0.5 MG VIAL IV PRN (15:00)
[2023-06-11] MEDS ORDERED: FENTANYL PF 250MCG/5ML AMPUL IV PRN (15:00)
[2023-06-11] MEDS ORDERED: NALOXONE PREFILLED SYRINGE 2 MG/2 ML SYRINGE IV PRN (15:00)
[2023-06-11] MEDS: FLUCONAZOLE IN NS,PREMIX 200 MG in PREMIX 1 EA IV SCH ×2 (15:09)
[2023-06-11] MEDS ORDERED: Sodium Phosphate 15 MMOL in IV NS 0.9% 245 ML IV ONE (16:00)
[2023-06-11] MEDS: MEROPENEM 1 G in IV NS 0.9% 100 ML IV SCH (21:04)
[2023-06-11] MEDS: MIRTAZAPINE 15 MG TABLET PO SCH (21:18)
[2023-06-11] MEDS: DOCUSATE SODIUM LIQ 100 MG/10 ML UDC GT SCH (21:18)
[2023-06-12] VITALS: BP_SYST 139; BP_SYST 147; BP_DIAS 50; BP_DIAS 68; TEMP 97.6; TEMP 98.6; O2SAT 93; O2SAT 96
[2023-06-12 04:00] VITALS: BP 138/56; TEMP 97.8; O2SAT 95
[2023-06-12] MEDS: BLOOD SUGAR DIAGNOSTIC 1 EACH STRIP IN SCH ×4 (05:33→23:53)
[2023-06-12] MEDS: INSULIN REGULAR, HUMAN 100 UNIT/ML 3 ML VIAL SQ PRN ×2 (05:41→23:53)
[2023-06-12 06:35] LABS: CARBON DIOXIDE 28 mmol/L (21-32); CHLORIDE 108 mmol/L (98-107); CREATININE 2.5 mg/dL (0.6-1.3); GLUCOSE 162 mg/dL (74-106); MAGNESIUM 2.3 mg/dL (1.8-2.4); PHOSPHORUS 4.2 mg/dL (2.5-4.9); POTASSIUM 3.3 mmol/L (3.5-5.1); SODIUM SERUM 146 mmol/L (136-145); UREA NITROGEN, BLOOD 44 mg/dL (7-18)
[2023-06-12] MEDS ORDERED: CLONIDINE HCL 0.1 MG TABLET NG PRN (07:07)
[2023-06-12] MEDS ORDERED: ZOLPIDEM TARTRATE 5 MG TABLET NG PRN (07:08)
[2023-06-12] MEDS ORDERED: PROSOURCE / PROSTAT (PYXIS) 30 ML UDC NG SCH (07:08)
[2023-06-12] MEDS ORDERED: ACETAMINOPHEN 650 MG/20.3 ML UDC NG PRN (07:30)
[2023-06-12 07:48] LABS: BASOPHILS # (AUTO) 0.1 K/uL (0.0-0.2); BASOPHILS % (AUTO) 0.6 % (0.0-2.0); EOSINOPHILS # (AUTO) 0.3 K/uL (0.0-0.7); EOSINOPHILS % (AUTO) 2.7 % (0.0-6.0); HEMATOCRIT 26 % (39-51); LYMPHOCYTES # (AUTO) 1.3 K/uL (0.8-4.8); LYMPHOCYTES % (AUTO) 10.9 % (20.0-44.0); MEAN CORPUSCULAR HEMOGLOBIN 30 PG (26.0-33.0); MEAN CORPUSCULAR HGB CONC 31 g/dl (31.0-36.0); MEAN CORPUSCULAR VOLUME 94 fL (80-96); MONOCYTES % (AUTO) 8.7 % (2.0-12.0); NEUTROPHILS % (AUTO) 77.1 % (43.0-81.0); PLATELET COUNT (AUTO) 273 K/uL (150-450); RED BLOOD CELL COUNT(AUTO) 2.71 MIL/uL (4.5-6.0); RED CELL DISTRIBUTION WIDTH 15.6 % (11.5-15.0); WHITE BLOOD COUNT (AUTO) 11.7 K/uL (4.3-11.0)
[2023-06-12 08:00] VITALS: BP 151/59; TEMP 98.1; O2SAT 99
[2023-06-12] MEDS: PANTOPRAZOLE 40 MG/PACK PACK NG SCH (08:27)
[2023-06-12] MEDS: MEMANTINE HCL 5 MG TABLET NG SCH (09:13)
[2023-06-12] MEDS: SENNOSIDES 8.6 MG TABLET NG SCH (09:14)
[2023-06-12] MEDS: CYANOCOBALAMIN 500 MCG TABLET NG SCH (09:14)
[2023-06-12] MEDS: FOLIC ACID 1 MG TABLET NG SCH (09:14)
[2023-06-12] MEDS: AMLODIPINE BESYLATE 2.5 MG TABLET NG SCH (09:19)
[2023-06-12] MEDS: DAKINS QUARTER STRENGTH (0.125%) 480 ML BOTTLE TOP SCH (09:37)
[2023-06-12 09:55] LABS: BAND % (MANUAL) 3 % (0.0-5.0); EOSINOPHILS % (MANUAL) 3 % (0-4); LYMPHOCYTES % (MANUAL) 8 % (16-48); MONOCYTES % (MANUAL) 7 % (0-11.0); NEUTROPHILS % (MANUAL) 79 (42-76); PLATELET ESTIMATE ADEQUATE
[2023-06-12] MEDS ORDERED: POTASSIUM CHLORIDE 20 MEQ POWDER PACKET GT ONE (10:30)
[2023-06-12] MEDS: FLUCONAZOLE IN NS,PREMIX 200 MG in PREMIX 1 EA IV SCH ×2 (15:09)
[2023-06-12 16:00] VITALS: BP 123/69; TEMP 98.2; O2SAT 94
[2023-06-12] MEDS: NEPRO 1,000 ML BOTTLE GT PRN (17:38)
[2023-06-12 20:00] VITALS: BP 148/66; TEMP 97.5; O2SAT 98
[2023-06-12] MEDS: DOCUSATE SODIUM LIQ 100 MG/10 ML UDC NG SCH (22:17)
[2023-06-12] MEDS: MIRTAZAPINE 15 MG TABLET NG SCH (22:18)
[2023-06-13] VITALS: BP 147/68; TEMP 97.6; O2SAT 93
[2023-06-13 04:59] VITALS: BP 142/64; TEMP 97.7; O2SAT 97
[2023-06-13 05:00] VITALS: BP 142/64; TEMP 97.7; O2SAT 97
[2023-06-13] MEDS: BLOOD SUGAR DIAGNOSTIC 1 EACH STRIP IN SCH ×3 (05:38→17:42)
[2023-06-13] MEDS: INSULIN REGULAR, HUMAN 100 UNIT/ML 3 ML VIAL SQ PRN ×3 (05:39→17:45)
[2023-06-13 06:23] LABS: BASOPHILS # (AUTO) 0.1 K/uL (0.0-0.2); BASOPHILS % (AUTO) 0.6 % (0.0-2.0); EOSINOPHILS # (AUTO) 0.4 K/uL (0.0-0.7); HEMATOCRIT 24 % (39-51); HEMOGLOBIN 7.9 g/dL (13.5-17.5); LYMPHOCYTES # (AUTO) 1.5 K/uL (0.8-4.8); LYMPHOCYTES % (AUTO) 13.9 % (20.0-44.0); MEAN CORPUSCULAR HEMOGLOBIN 30 PG (26.0-33.0); MEAN CORPUSCULAR HGB CONC 33 g/dl (31.0-36.0); MEAN CORPUSCULAR VOLUME 92 fL (80-96); MONOCYTES % (AUTO) 9.1 % (2.0-12.0); NEUTROPHILS # (AUTO) 7.6 K/uL (1.8-8.9); NEUTROPHILS % (AUTO) 72.4 % (43.0-81.0); PLATELET COUNT (AUTO) 266 K/uL (150-450); RED BLOOD CELL COUNT(AUTO) 2.65 MIL/uL (4.5-6.0); RED CELL DISTRIBUTION WIDTH 15.6 % (11.5-15.0); WHITE BLOOD COUNT (AUTO) 10.5 K/uL (4.3-11.0)
[2023-06-13 06:46] LABS: CALCIUM, SERUM 9.8 mg/dL (8.5-10.1); CARBON DIOXIDE 26 mmol/L (21-32); CHLORIDE 110 mmol/L (98-107); CREATININE 1.9 mg/dL (0.6-1.3); GLUCOSE 166 mg/dL (74-106); PHOSPHORUS 3.2 mg/dL (2.5-4.9); POTASSIUM 3.9 mmol/L (3.5-5.1); SODIUM SERUM 142 mmol/L (136-145); UREA NITROGEN, BLOOD 32 mg/dL (7-18)
[2023-06-13 07:31] LABS: EOSINOPHILS % (MANUAL) 3 % (0-4); LYMPHOCYTES % (MANUAL) 18 % (16-48); MONOCYTES % (MANUAL) 5 % (0-11.0); NEUTROPHILS % (MANUAL) 74 (42-76); PLATELET ESTIMATE ADEQUATE
[2023-06-13] MEDS: PANTOPRAZOLE 40 MG/PACK PACK NG SCH (07:43)
[2023-06-13 08:29] VITALS: BP 164/84; TEMP 96.5; O2SAT 100
[2023-06-13] MEDS: SENNOSIDES 8.6 MG TABLET NG SCH (09:39)
[2023-06-13] MEDS: MEMANTINE HCL 5 MG TABLET NG SCH (09:39)
[2023-06-13] MEDS: CYANOCOBALAMIN 500 MCG TABLET NG SCH (09:39)
[2023-06-13] MEDS: FOLIC ACID 1 MG TABLET NG SCH (09:40)
[2023-06-13] MEDS: DAKINS QUARTER STRENGTH (0.125%) 480 ML BOTTLE TOP SCH (09:40)
[2023-06-13] MEDS: AMLODIPINE BESYLATE 2.5 MG TABLET NG SCH (09:40)
[2023-06-13] MEDS: FLUCONAZOLE IN NS,PREMIX 200 MG in PREMIX 1 EA IV SCH ×2 (13:29)
[2023-06-13 16:09] VITALS: BP 124/58; TEMP 97.7; O2SAT 100
[2023-06-13 20:00] VITALS: BP_SYST 129; BP_SYST 134; BP_DIAS 55; BP_DIAS 77; TEMP 97.2; TEMP 97.6; O2SAT 96; O2SAT 97
[2023-06-13] MEDS: MIRTAZAPINE 15 MG TABLET NG SCH (21:21)
[2023-06-13] MEDS: DOCUSATE SODIUM LIQ 100 MG/10 ML UDC NG SCH (21:24)
[2023-06-13] MEDS: NEPRO 1,000 ML BOTTLE GT PRN (21:53)
[2023-06-14] VITALS: BP 155/75; TEMP 97.4; O2SAT 98
[2023-06-14] MEDS: BLOOD SUGAR DIAGNOSTIC 1 EACH STRIP IN SCH ×4 (01:50→18:15)
[2023-06-14] MEDS: INSULIN REGULAR, HUMAN 100 UNIT/ML 3 ML VIAL SQ PRN ×4 (01:54→18:17)
[2023-06-14 04:09] VITALS: BP 149/76; TEMP 97.4; O2SAT 99
[2023-06-14 07:08] LABS: BASOPHILS % (AUTO) 0.4 % (0.0-2.0); EOSINOPHILS # (AUTO) 0.3 K/uL (0.0-0.7); EOSINOPHILS % (AUTO) 3.1 % (0.0-6.0); HEMATOCRIT 25 % (39-51); LYMPHOCYTES # (AUTO) 1.2 K/uL (0.8-4.8); LYMPHOCYTES % (AUTO) 11.2 % (20.0-44.0); MEAN CORPUSCULAR HEMOGLOBIN 30 PG (26.0-33.0); MEAN CORPUSCULAR HGB CONC 32 g/dl (31.0-36.0); MEAN CORPUSCULAR VOLUME 92 fL (80-96); MONOCYTES # (AUTO) 0.9 K/uL (0.1-1.30); MONOCYTES % (AUTO) 8.1 % (2.0-12.0); NEUTROPHILS # (AUTO) 8.6 K/uL (1.8-8.9); NEUTROPHILS % (AUTO) 77.2 % (43.0-81.0); PLATELET COUNT (AUTO) 276 K/uL (150-450); RED BLOOD CELL COUNT(AUTO) 2.69 MIL/uL (4.5-6.0); RED CELL DISTRIBUTION WIDTH 15.4 % (11.5-15.0); WHITE BLOOD COUNT (AUTO) 11.1 K/uL (4.3-11.0)
[2023-06-14 07:45] LABS: ALANINE AMINOTRANSFERASE 8 U/L (12-78); ALKALINE PHOSPHATASE 172 U/L (46-116); ASPARTATE AMINOTRANSFERASE 24 U/L (15-37); BILIRUBIN,TOTAL 0.2 mg/dL (0.2-1.0); CARBON DIOXIDE 24 mmol/L (21-32); CHLORIDE 110 mmol/L (98-107); CREATININE 2.4 mg/dL (0.6-1.3); GLUCOSE 201 mg/dL (74-106); MAGNESIUM 2.2 mg/dL (1.8-2.4); PHOSPHORUS 3.5 mg/dL (2.5-4.9); POTASSIUM 3.6 mmol/L (3.5-5.1); SODIUM SERUM 143 mmol/L (136-145); TOTAL PROTEIN, SERUM 6.9 g/dL (6.4-8.2); UREA NITROGEN, BLOOD 47 mg/dL (7-18)
[2023-06-14 07:50] LABS: ALBUMIN 1.1 g/dL (3.4-5.0)
[2023-06-14 08:00] VITALS: BP 130/62; TEMP 98.4; O2SAT 98
[2023-06-14] MEDS: PANTOPRAZOLE 40 MG/PACK PACK NG SCH (08:46)
[2023-06-14] MEDS: CYANOCOBALAMIN 500 MCG TABLET NG SCH (08:46)
[2023-06-14] MEDS: FOLIC ACID 1 MG TABLET NG SCH (08:46)
[2023-06-14] MEDS: AMLODIPINE BESYLATE 2.5 MG TABLET NG SCH (08:47)
[2023-06-14] MEDS: MEMANTINE HCL 5 MG TABLET NG SCH (09:02)
[2023-06-14] MEDS: SENNOSIDES 8.6 MG TABLET NG SCH (09:02)
[2023-06-14] MEDS: DAKINS QUARTER STRENGTH (0.125%) 480 ML BOTTLE TOP SCH (09:03)
[2023-06-14 10:49] LABS: BAND % (MANUAL) 2 % (0.0-5.0); EOSINOPHILS % (MANUAL) 4 % (0-4); LYMPHOCYTES % (MANUAL) 8 % (16-48); MONOCYTES % (MANUAL) 8 % (0-11.0); NEUTROPHILS % (MANUAL) 78 (42-76); PLATELET ESTIMATE ADEQUATE
[2023-06-14 12:00] VITALS: BP 137/66; TEMP 97.5; O2SAT 96
[2023-06-14] MEDS: FLUCONAZOLE IN NS,PREMIX 200 MG in PREMIX 1 EA IV SCH ×2 (14:03)
[2023-06-14 15:32] LABS: APPEARANCE,URINE CLOUDY (CLEAR); BILIRUBIN,URINE NEGATIVE (NEGATIVE); BLOOD, URINE 2+ Ery/uL (NEGATIVE); KETONES,URINE NEGATIVE (NEGATIVE); LEUKOCYTE ESTERASE ,URINE 2+ (NEGATIVE); NITRITE, URINE POSITIVE (NEGATIVE); PROTEIN,URINE 2+ mg/dl (NEGATIVE); UGLUCOSE NEGATIVE (NEGATIVE); UROBILINOGEN,URINE 0.2 EU/dL (0.2)
[2023-06-14 15:34] LABS: COLOR,URINE ORANGE (YELLOW)
[2023-06-14 15:56] LABS: RBC,URINE 51-80 /HPF (0-2); WBC,URINE 21-50 /HPF (0-3)
[2023-06-14 15:57] LABS: ADD URINE CULTURE YES; BACTERIA,URINE 1+ /HPF (None Seen); SQUAMOUS EPITHELIAL CELL,UR 0-2 /HPF (None Seen)
[2023-06-14 16:00] VITALS: BP 133/66; TEMP 97.4; O2SAT 94
[2023-06-14] MEDS: CEFTRIAXONE 1 G in IV D5W 50 ML IV SCH (16:50)
[2023-06-14] MEDS: NEOMY SULF/BACITRAC ZN/POLY 15 GM TUBE TP SCH (18:15)
[2023-06-14] MEDS: BACITRACIN ZINC OINT (15 GM) 15 GM TUBE TP SCH (18:16)
[2023-06-14 20:00] VITALS: BP 129/77; TEMP 97.2; O2SAT 97
[2023-06-14] MEDS: DOCUSATE SODIUM LIQ 100 MG/10 ML UDC NG SCH (23:41)
[2023-06-14] MEDS: MIRTAZAPINE 15 MG TABLET NG SCH (23:41)
[2023-06-15] MEDS: BLOOD SUGAR DIAGNOSTIC 1 EACH STRIP IN SCH ×4 (00:18→17:54)
[2023-06-15] MEDS: NEPRO 1,000 ML BOTTLE GT PRN (00:20)
[2023-06-15 06:00] LABS: BASOPHILS # (AUTO) 0.1 K/uL (0.0-0.2); BASOPHILS % (AUTO) 0.6 % (0.0-2.0); EOSINOPHILS # (AUTO) 0.3 K/uL (0.0-0.7); EOSINOPHILS % (AUTO) 2.5 % (0.0-6.0); HEMATOCRIT 25 % (39-51); LYMPHOCYTES # (AUTO) 1.3 K/uL (0.8-4.8); LYMPHOCYTES % (AUTO) 11.6 % (20.0-44.0); MEAN CORPUSCULAR HEMOGLOBIN 30 PG (26.0-33.0); MEAN CORPUSCULAR HGB CONC 32 g/dl (31.0-36.0); MEAN CORPUSCULAR VOLUME 92 fL (80-96); MONOCYTES # (AUTO) 0.8 K/uL (0.1-1.30); MONOCYTES % (AUTO) 7.4 % (2.0-12.0); NEUTROPHILS # (AUTO) 8.5 K/uL (1.8-8.9); NEUTROPHILS % (AUTO) 77.9 % (43.0-81.0); PLATELET COUNT (AUTO) 269 K/uL (150-450); RED BLOOD CELL COUNT(AUTO) 2.72 MIL/uL (4.5-6.0); RED CELL DISTRIBUTION WIDTH 15.4 % (11.5-15.0); WHITE BLOOD COUNT (AUTO) 10.9 K/uL (4.3-11.0)
[2023-06-15 06:09] LABS: CALCIUM, SERUM 10.8 mg/dL (8.5-10.1); CARBON DIOXIDE 25 mmol/L (21-32); CHLORIDE 109 mmol/L (98-107); GLUCOSE 170 mg/dL (74-106); MAGNESIUM 2.1 mg/dL (1.8-2.4); PHOSPHORUS 2.6 mg/dL (2.5-4.9); POTASSIUM 3.2 mmol/L (3.5-5.1); SODIUM SERUM 140 mmol/L (136-145); UREA NITROGEN, BLOOD 39 mg/dL (7-18)
[2023-06-15] MEDS: INSULIN REGULAR, HUMAN 100 UNIT/ML 3 ML VIAL SQ PRN (06:55)
[2023-06-15 08:00] VITALS: BP 112/58; TEMP 97; O2SAT 88
[2023-06-15] MEDS: AMLODIPINE BESYLATE 2.5 MG TABLET NG SCH ×2 (08:35→08:46)
[2023-06-15] MEDS: FOLIC ACID 1 MG TABLET NG SCH ×2 (08:35→08:46)
[2023-06-15] MEDS: SENNOSIDES 8.6 MG TABLET NG SCH ×2 (08:35→08:46)
[2023-06-15] MEDS: PANTOPRAZOLE 40 MG/PACK PACK NG SCH ×2 (08:35→08:46)
[2023-06-15] MEDS: CYANOCOBALAMIN 500 MCG TABLET NG SCH ×2 (08:35→08:46)
[2023-06-15] MEDS: MEMANTINE HCL 5 MG TABLET NG SCH ×2 (08:35→08:46)
[2023-06-15] MEDS: NEOMY SULF/BACITRAC ZN/POLY 15 GM TUBE TP SCH ×2 (10:16→16:52)
[2023-06-15] MEDS: DAKINS QUARTER STRENGTH (0.125%) 480 ML BOTTLE TOP SCH (10:16)
[2023-06-15] MEDS: BACITRACIN ZINC OINT (15 GM) 15 GM TUBE TP SCH ×2 (10:18→16:52)
[2023-06-15] MEDS: POTASSIUM CL. PREMIX PERIPHER. 50 ML IV SCH ×2 (10:49→12:35)
[2023-06-15] MEDS: FLUCONAZOLE IN NS,PREMIX 200 MG in PREMIX 1 EA IV SCH ×2 (14:57)
[2023-06-15 16:00] VITALS: BP 126/60; TEMP 97.1; O2SAT 96
[2023-06-15] MEDS: CEFTRIAXONE 1 G in IV D5W 50 ML IV SCH (16:54)
[2023-06-15 20:27] VITALS: BP 133/66; TEMP 97; O2SAT 93
[2023-06-15] MEDS: DOCUSATE SODIUM LIQ 100 MG/10 ML UDC NG SCH (22:00)
[2023-06-15] MEDS: MIRTAZAPINE 15 MG TABLET NG SCH (22:00)
[2023-06-16] MEDS: BLOOD SUGAR DIAGNOSTIC 1 EACH STRIP IN SCH ×2 (00:32→06:03)
[2023-06-16] MEDS: POTASSIUM CL. PREMIX PERIPHER. 50 ML IV SCH (00:55)
[2023-06-16 02:04] LABS: ABG BASE EXCESS 4.4 mmol/L; ABG OXYGEN SATURATION 87.8 % (92.0-98.5); ABG PCO2 28.6 mmHg (35.0-45.0); ABG PH 7.581 (7.350-7.450); ABG PO2 51.1 mmHg (75.0-100.0); AaDO2 114.8 mmHg; COHb 0.4 % (0.5-1.5); MetHb 0.3 % (0.0-1.5); O2Hb 87.2 % (94.0-97.0); SITE, ABG Right Radial; VENT MODE, BG 2L NASAL CANNULA
[2023-06-16 06:01] LABS: BASOPHILS # (AUTO) 0.1 K/uL (0.0-0.2); BASOPHILS % (AUTO) 0.5 % (0.0-2.0); EOSINOPHILS # (AUTO) 0.2 K/uL (0.0-0.7); EOSINOPHILS % (AUTO) 1.7 % (0.0-6.0); HEMATOCRIT 24 % (39-51); HEMOGLOBIN 7.6 g/dL (13.5-17.5); LYMPHOCYTES # (AUTO) 1.7 K/uL (0.8-4.8); MEAN CORPUSCULAR HEMOGLOBIN 30 PG (26.0-33.0); MEAN CORPUSCULAR HGB CONC 32 g/dl (31.0-36.0); MEAN CORPUSCULAR VOLUME 91 fL (80-96); MONOCYTES % (AUTO) 7.7 % (2.0-12.0); NEUTROPHILS # (AUTO) 9.8 K/uL (1.8-8.9); NEUTROPHILS % (AUTO) 77.1 % (43.0-81.0); PLATELET COUNT (AUTO) 287 K/uL (150-450); RED BLOOD CELL COUNT(AUTO) 2.57 MIL/uL (4.5-6.0); RED CELL DISTRIBUTION WIDTH 15.5 % (11.5-15.0); WHITE BLOOD COUNT (AUTO) 12.8 K/uL (4.3-11.0)
[2023-06-16 06:10] LABS: CALCIUM, SERUM 10.1 mg/dL (8.5-10.1); CARBON DIOXIDE 28 mmol/L (21-32); CHLORIDE 105 mmol/L (98-107); CREATININE 1.4 mg/dL (0.6-1.3); GLUCOSE 76 mg/dL (74-106); MAGNESIUM 2.1 mg/dL (1.8-2.4); PHOSPHORUS 2.1 mg/dL (2.5-4.9); POTASSIUM 3.3 mmol/L (3.5-5.1); SODIUM SERUM 141 mmol/L (136-145); UREA NITROGEN, BLOOD 24 mg/dL (7-18)
[2023-06-16 09:28] LABS: BAND % (MANUAL) 8 % (0.0-5.0); EOSINOPHILS % (MANUAL) 2 % (0-4); LYMPHOCYTES % (MANUAL) 6 % (16-48); MONOCYTES % (MANUAL) 5 % (0-11.0); MYELOCYTES % 3 % (0-0); NEUTROPHILS % (MANUAL) 76 (42-76); PLATELET ESTIMATE ADEQUATE
[2023-06-16] MEDS ORDERED: POTASSIUM CHLORIDE 20 MEQ POWDER PACKET NG SCH (11:00)
== END 2023-06-16 09:25 | DRG 207 ==
LOC: ER 13:22 → MED 18:12 → UNDODISIN 05-20 15:44 → TELE1 05-20 19:06 → MEDSG1 05-20 19:40 → TELE1 05-27 23:08 → ICU 05-28 13:10 → TELE 06-07 19:53 → MED 06-14 15:36
PROVIDERS: ATTEND Nurse Practitioner Acute Care
PROC: 05HC33Z Insertion of Infusion Device into Left Basilic Vein, Percutaneous Approach (ICD-10-PCS; 2023-05-22)
PROC: 5A1955Z Respiratory Ventilation, Greater than 96 Consecutive Hours (ICD-10-PCS; principal; 2023-05-28)
PROC: 0BH17EZ Insertion of Endotracheal Airway into Trachea, Via Natural or Artificial Opening (ICD-10-PCS; 2023-05-28)
PROC: 5A1D70Z Performance of Urinary Filtration, Intermittent, Less than 6 Hours Per Day (ICD-10-PCS; 2023-05-29)
PROC: 30233N1 Transfusion of Nonautologous Red Blood Cells into Peripheral Vein, Percutaneous Approach (ICD-10-PCS; 2023-05-29)
PROC: 05HN33Z Insertion of Infusion Device into Left Internal Jugular Vein, Percutaneous Approach (ICD-10-PCS; 2023-05-29)
PROC: B544ZZA Ultrasonography of Left Jugular Veins, Guidance (ICD-10-PCS; 2023-05-29)
PROC: 05HC33Z Insertion of Infusion Device into Left Basilic Vein, Percutaneous Approach (ICD-10-PCS; 2023-05-29)
PROC: 02HV33Z Insertion of Infusion Device into Superior Vena Cava, Percutaneous Approach (ICD-10-PCS; 2023-05-29)
PROC: B548ZZA Ultrasonography of Superior Vena Cava, Guidance (ICD-10-PCS; 2023-05-29)
PROC: 0JH63XZ Insertion of Tunneled Vascular Access Device into Chest Subcutaneous Tissue and Fascia, Percutaneous Approach (ICD-10-PCS; 2023-06-09)
PROC: 05HM33Z Insertion of Infusion Device into Right Internal Jugular Vein, Percutaneous Approach (ICD-10-PCS; 2023-06-09)
PROC: B513YZA Fluoroscopy of Right Jugular Veins using Other Contrast, Guidance (ICD-10-PCS; 2023-06-09)
DX: J69.0 Pneumonitis due to inhalation of food and vomit (principal); N17.0 Acute kidney failure with tubular necrosis; E43 Unspecified severe protein-calorie malnutrition; U07.1 COVID-19; N18.6 End stage renal disease; J96.01 Acute respiratory failure with hypoxia; G93.41 Metabolic encephalopathy; D68.59 Other primary thrombophilia; N13.6 Pyonephrosis; E44.0 Moderate protein-calorie malnutrition; N39.0 Urinary tract infection, site not specified; I48.92 Unspecified atrial flutter; F03.93 Unspecified dementia, unspecified severity, with mood disturbance; F03.94 Unspecified dementia, unspecified severity, with anxiety; J90 Pleural effusion, not elsewhere classified; M48.54XA Collapsed vertebra, not elsewhere classified, thoracic region, initial encounter for fracture; J98.11 Atelectasis; E87.20 Acidosis, unspecified; I12.0 Hypertensive chronic kidney disease with stage 5 chronic kidney disease or end stage renal disease; N20.1 Calculus of ureter; C79.9 Secondary malignant neoplasm of unspecified site; E11.22 Type 2 diabetes mellitus with diabetic chronic kidney disease; C67.9 Malignant neoplasm of bladder, unspecified; Z66 Do not resuscitate; R13.10 Dysphagia, unspecified; Z85.46 Personal history of malignant neoplasm of prostate; M81.0 Age-related osteoporosis without current pathological fracture; F39 Unspecified mood [affective] disorder; F41.9 Anxiety disorder, unspecified; L89.156 Pressure-induced deep tissue damage of sacral region; L89.896 Pressure-induced deep tissue damage of other site; Y95 Nosocomial condition; Z78.9 Other specified health status; Z91.011 Allergy to milk products; Z79.84 Long term (current) use of oral hypoglycemic drugs; Z79.899 Other long term (current) drug therapy; E88.09 Other disorders of plasma-protein metabolism, not elsewhere classified; D53.9 Nutritional anemia, unspecified; D63.0 Anemia in neoplastic disease; D69.6 Thrombocytopenia, unspecified; E83.39 Other disorders of phosphorus metabolism; E87.6 Hypokalemia; E87.8 Other disorders of electrolyte and fluid balance, not elsewhere classified; I46.9 Cardiac arrest, cause unspecified; N28.1 Cyst of kidney, acquired; N40.0 Benign prostatic hyperplasia without lower urinary tract symptoms; Z99.2 Dependence on renal dialysis; N13.9 Obstructive and reflux uropathy, unspecified; I49.9 Cardiac arrhythmia, unspecified; B96.89 Other specified bacterial agents as the cause of diseases classified elsewhere; F09 Unspecified mental disorder due to known physiological condition; I77.1 Stricture of artery
CPT/HCPCS: 31720; 36410; 36415; 36569; 36600; 71045-TC; 71250-TC; 76770-TC; 80048-TC; 80053-TC; 80061-TC; 80076-TC; 80202-TC; 81001; 82378; 82533; 82607-TC; 82728-TC; 82784; 82803-TC; 82962-TC; 83540-TC; 83605-TC; 83735-TC; 84100-TC; 84155; 84165; 84443-TC; 84484-TC; 85025-TC; 85396; 85730-TC; 86140-TC; 86334; 86704; 86705; 86706; 86803; 86850-TC; 87040-TC; 87081-TC; 87086-TC; 87340; 87806; 90935-TC; 92526; 92611-TC; 93971-TC; 94003-TC; 94799-TC; 97110-TC; 97112-TC; 97530-TC; A4216; A4223; A4624; A6253; A6403; A9563; C1750; C1769; C9803; G0378; J0690; J0692; J0696; J1450; J1644; J1650; J1815; J1940; J2185; J3010; J3370; J3475; J3480; J3490; J7030; J7040; J7042; J7050; J7060; J7070; P9016; Q9967